=== PATIENT | male | born 1970 | race Caucasian/White ===

== ENCOUNTER 2018-02-01 10:02 | Inpatient (IN) | payer OTHER, MEDICARE ==
[~2018-02-01] VITALS: Ht 172.7 cm; Wt 75.8 kg
[~2018-02-01 10:02] MED LIST: BUPROPION XL300 M1 PO; PANTOPRAZOLE SO40 M1 PO; PERCOCET 5-3251 EACH PO; QUETIAPINE FUM300 M1 PO; TYLENOL #31 TAB PO; ZOFRAN ODT4 M1 SL; ZOFRAN4 M1 PO
--- NOTE | 2018-02-01 11:48 | ED GI/GU/ABDOMINAL COMPLAINT ---
History of Present Illness General Chief Complaint: Abdominal Pain/Flank Pain Stated Complaint: ABD PAIN Source: patient, old records Exam Limitations: no limitations Allergies Coded Allergies: hydromorphone (HIVES 03/30/17) prochlorperazine (From COMPAZINE) (SHAKING 03/30/17) Reconcile Medications Bupropion HCl (Bupropion XL) 300 MG TAB.ER.24H 1 TAB PO QAM MENTAL HEALTH ( Reported) Ondansetron (Zofran Odt) 4 MG TAB.RAPDIS 1 TAB SL TID PRN nausea Oxycodone HCl/Acetaminophen (Percocet 5-325 MG Tablet) 5 MG-325 MG TABLET 1 TAB PO BID pain Pantoprazole Sodium 40 MG TABLET.DR 1 TAB PO DAILY ACID REFLUX (Reported) Quetiapine Fumarate 300 MG TABLET 1 TAB PO QPM SLEEP (Reported) Triage Note: PT STATES THAT HE HAS A HISTORY OF PANCREATITIS AND THAT SINCE THURSDAY HE HAS BEEN HAVING SHARP ABD PAIN WITH N/V. DENIES URINARY SYMPTOMS Triage Nurses Notes Reviewed? yes Onset: Afternoon Duration: day(s):, constant, getting worse Quality/Severity: sharpness Severity Numbers: 9 Location: epigastric Radiation: back Activities at Onset: rest Prior Abdominal Problems: similar symptoms HPI: This is a 47 y/o male with PMHx of pancreatitis and bipolar disorder c/o stomach pain x 5 days. Pain is getting progressively worse and radiates to his back. Pt describes his pain as sharp, constant and rates it as 9/10. Pt took Tylenol w/o significant relief. Pt complains that food intake exacerbates the pain, hence, he has not been eating for the last 3-4 days. Pt had similar symptoms before and was diagnosed with pancreatitis. Pt denies alcohol use. Pt has Hx of smoking for the past 20 years. Pt is positive for N/V. Pt has vomites twice today and 4 times yesterday. Pt denies fever, chills, D/C, hematemesis, CP, SOB. 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 He reports that nothing came about that and he has not heard anything about it since. He followed up with his GI doctor. The history is unclear as to exactly what the diagnosis was. PSHx: cholecystectomy (García Mclean) Vital Signs & Intake/Output Vital Signs & Intake/Output Vital Signs Date Time Temp Pulse Resp B/P B/P Pulse O2 O2 Flow FiO2 Mean Ox Delivery Rate 02/01 1451 98.2 86 18 143/81 99 Room Air 02/01 1336 98.1 91 16 136/74 99 Room Air 02/01 1139 98.6 90 18 135/73 99 Room Air 02/01 1009 98.5 108 18 149/83 98 Room Air (Freedom Shea DO) Past History Travel History Traveled to [place] past 21 day No Medical History Any Pertinent Medical History? 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 No (García Mclean) Review of Systems Review of Systems Constitutional: Reports: no symptoms. EENTM: Reports: no symptoms. Respiratory: Reports: no symptoms. Cardiovascular: Reports: no symptoms. GI: Reports: see HPI. Genitourinary: Reports: no symptoms. Musculoskeletal: Reports: see HPI. Skin: Reports: no symptoms. Neurological/Psychological: Reports: no symptoms. Hematologic/Endocrine: Reports: bruising. Immunologic/Allergic: Reports: no symptoms. All Other Systems: Reviewed and Negative (García Mclean) Physical Exam Physical Exam General Appearance: well developed/nourished, alert, awake, mild distress Head: atraumatic Eyes: Bilateral: normal appearance. Ears, Nose, Throat, Mouth: hearing grossly normal, moist mucous membrane Neck: normal inspection Respiratory: normal breath sounds, no respiratory distress Cardiovascular: regular rate/rhythm Gastrointestinal: soft, tenderness (Epigastric) Back: normal inspection Extremities: normal range of motion Neurologic/Psych: awake, alert, oriented x 3 Skin: intact, normal color Core Measures ACS in differential dx? No Sepsis Present: No Sepsis Focused Exam Completed? No (García Mclean) Progress Differential Diagnosis: AMI, appendicitis, bowel obstruction, gastritis, pancreatitis, peptic ulcer, PUD/GERD Plan of Care: Orders Procedure Date/time Status Nothing by Mouth 02/01 D Active Patient Data 02/01 1547 Active ED Holding Orders 02/01 1542 Active Admit to inpatient 02/01 1542 Active Code Status 02/01 1542 Active Add-on Test (ER Only) 02/01 1453 Active Intake & Output 02/01 1358 Active ETHANOL 02/01 1352 Complete EKG 02/01 1148 Active URINALYSIS 02/01 1121 Complete TROPONIN LEVEL 02/01 1121 Complete LIPASE 02/01 1121 Complete LACTIC ACID 02/01 1121 Complete COMPREHENSIVE METABOLIC PANEL 02/01 1121 Complete CBC WITHOUT DIFFERENTIAL 02/01 1121 Complete AMYLASE 02/01 1121 Complete Current Medications Sig/Chilo Start time Last Medication Dose Stop Time Status Admin Lactated Ringer's 1,000 ML ONCE ONE 02/01 1500 AC 02/01 (Lactated Ringers) 02/01 2139 1511 Laboratory Tests 02/01/18 1421: Lactic Acid Cancelled 02/01/18 1415: Urine Color YEL, Urine Clarity CLEAR, Urine pH 6.5, Ur Specific [place] 1.010, Urine Protein NEG, Urine Ketones NEG, Urine Nitrite NEG, Urine Bilirubin NEG, Urine Urobilinogen 0.2, Ur Leukocyte Esterase NEG, Ur Microscopic EXAM NOT REQUIRED, Urine Hemoglobin NEG, Urine Glucose NEG 02/01/18 1352: Anion Gap 9, Estimated GFR > 60, BUN/Creatinine Ratio 11.1, Glucose 100 H, Lactic Acid 0.5 L, Calcium 8.5, Total Bilirubin 0.4, AST 12 L, ALT 22, Alkaline Phosphatase 111, Troponin I < 0.01, Total Protein 5.2 L, Albumin 3.2 L, Globulin 2.0, Albumin/Globulin Ratio 1.6, Amylase 79, Lipase 1095 H, RBC 3.78 L, MCV 88.5, MCH 29.6, MCHC 33.4, RDW 16.4 H, MPV 7.3 L, Gran % 56.3, Lymphocytes % 27.6, Monocytes % 7.7, Eosinophils % 7.4 H, Basophils % 1.0, Absolute Granulocytes 3.5, Absolute Lymphocytes 1.7, Absolute Monocytes 0.5, Absolute Eosinophils 0.5, Absolute Basophils 0.1, Serum Alcohol < 10.0 Microbiology 02/01 1354 M[facility] O.R.: Miscellaneous Culture - CAN Cancelled: Cancelled via OE: COMPLETED BY FOOT 02/01 1354 [facility] [place] O.R.: Gram Stain - CAN Cancelled: Cancelled via OE: COMPLETED BY FOOT Diagnostic Imaging: Viewed by Me: CT Scan. Discussed w/RAD: CT Scan. Radiology Impression: PATIENT: NESSA LEE PRESENT AGE: 47 PATIENT ACCOUNT NO: [id number] : 68 LOCATION: [facility] ORDERING PHYSICIAN: García SALAZAR SERVICE DATE: 02/01/18 EXAM TYPE: CAT - CT ABD & PELVIS W/O IV CONTRAS EXAMINATION: CT ABDOMEN AND PELVIS WITHOUT CONTRAST CLINICAL INFORMATION: Epigastric pain. COMPARISON: 03/30/2017. TECHNIQUE: Contiguous axial thin section helical images of the abdomen and pelvis were performed without oral or IV contrast. The data set was reformatted in the coronal and sagittal planes and reviewed on an independent workstation. DLP: 345 mGy-cm. FINDINGS: The visualized lung bases are clear. The visualized portions of the heart are unremarkable. The liver is of normal size and attenuation without focal lesions nor intrahepatic biliary ductal dilation. The patient is status post cholecystectomy. Surgical clips are identified. The spleen, pancreas, adrenal glands are unremarkable. Both kidneys are of normal size and attenuation without hydronephrosis. There is a 4 mm nonobstructive calculus within the interpole region of the right kidney. There is a stable 11 mm low-attenuation lesion within the upper pole of left kidney, likely account representative of a cyst. There is no abdominal free fluid. There is neither mesenteric nor retroperitoneal lymphadenopathy. Normal unopacified loops of small and large bowel are identified. There is no pelvic free fluid. The urinary bladder is unremarkable. There is neither pelvic nor inguinal lymphadenopathy. Bone windows: Neither sclerotic nor lytic bone lesions are identified. There is stable height loss and mild anterior wedging to the T11 vertebral body. There is new mild anterior wedging to the inferior endplate of L1 with mild anterior height loss. IMPRESSION: New compression fracture to the L1 vertebral body with mild height loss.. No evidence for acute abdominal or pelvic inflammatory or infectious processes. No abdominal or pelvic lymphadenopathy. 4 mm nonobstructive right renal calculus. Status post cholecystectomy. DICTATED BY: Lopez Gonsalez MD DATE/TIME DICTATED:02/01/181301 TRANSLATOR/INTERPRETER:PABLITO DATE/TIME TRANSCRIBED:06/04/18 / 1302 CONFIDENTIAL, DO NOT COPY WITHOUT APPROPRIATE AUTHORIZATION. <Electronically signed in Other Vendor System> SIGNED BY: Lopez Gonsalez MD 02/01/18 1313 Initial ED EKG: normal sinus rhythm, rate (91), nonspecific ST T wave chg (García Mclean) Departure Departure Disposition: STILL A PATIENT Condition: Stable Clinical Impression Primary Impression: Acute pancreatitis Referrals: Patient Has No Primary Care Dr (PCP/Family) Departure Forms: Customer Survey General Discharge Information Admission Note Spoke With: Asaf Rodrigez MD Documentation of Exam: Documentation of any treatments & extenuating circumstances including Concerns Regarding Discharge (functional status, medication knowledge or non-compliance, living conditions, etc.) that warrant an admission rather than observation: Patient will require IV fluids. IV pain control. GI consultation. Repeat labs. Medically not safe for discharge. Patient requiring multiple doses of IV narcotics. (García Mclean) PA/HEALTH COMMISSIONER Co-Sign Statement Statement: ED Attending supervision documentation- [] I saw and evaluated the patient. I have also reviewed all the pertinent lab results and diagnostic results. I agree with the findings and the plan of care as documented in the PA's/HEALTH COMMISSIONER's documentation. [X] I have reviewed the ED Record and agree with the PA's/HEALTH COMMISSIONER's documentation. [] Additions or exceptions (if any) to the PAs/HEALTH COMMISSIONER's note and plan are summarized below: [] (Freedom Shea DO) Critical Care Note Critical Care Note Critical Care Time: 30-74 min (35) (García Mclean)
--- NOTE | 2018-02-01 13:13 | CT SCAN REPORT ---
EXAMINATION: CT ABDOMEN AND PELVIS WITHOUT CONTRAST CLINICAL INFORMATION: Epigastric pain. COMPARISON: 03/30/2017. TECHNIQUE: Contiguous axial thin section helical images of the abdomen and pelvis were performed without oral or IV contrast. The data set was reformatted in the coronal and sagittal planes and reviewed on an independent workstation. DLP: 345 mGy-cm. FINDINGS: The visualized lung bases are clear. The visualized portions of the heart are unremarkable. The liver is of normal size and attenuation without focal lesions nor intrahepatic biliary ductal dilation. The patient is status post cholecystectomy. Surgical clips are identified. The spleen, pancreas, adrenal glands are unremarkable. Both kidneys are of normal size and attenuation without hydronephrosis. There is a 4 mm nonobstructive calculus within the interpole region of the right kidney. There is a stable 11 mm low-attenuation lesion within the upper pole of left kidney, likely account executive sales representative of a cyst. There is no abdominal free fluid. There is neither mesenteric nor retroperitoneal lymphadenopathy. Normal unopacified loops of small and large bowel are identified. There is no pelvic free fluid. The urinary bladder is unremarkable. There is neither pelvic nor inguinal lymphadenopathy. Bone windows: Neither sclerotic nor lytic bone lesions are identified. There is stable height loss and mild anterior wedging to the T11 vertebral body. There is new mild anterior wedging to the inferior endplate of L1 with mild anterior height loss. IMPRESSION: New compression fracture to the L1 vertebral body with mild height loss.. No evidence for acute abdominal or pelvic inflammatory or infectious processes. No abdominal or pelvic lymphadenopathy. 4 mm nonobstructive right renal calculus. Status post cholecystectomy.
[2018-02-01 14:01] LABS: ABSOLUTE BASOPHIL COUNT 0.1 /CUMM (0.0-0.2); ABSOLUTE EOSINOPHIL COUNT 0.5 /CUMM (0.0-0.7); ABSOLUTE GRANULOCYTE CT 3.5 /CUMM (1.4-6.5); ABSOLUTE LYMPH COUNT 1.7 /CUMM (1.2-3.4); ABSOLUTE MONOCYTE COUNT 0.5 /CUMM (0.10-0.60); EOSINOPHIL % 7.4 % (0-5); GRANULOCYTE % 56.3 % (42.2-75.2); HEMATOCRIT 33.4 % (42-52); MEAN CORPUSCULAR HGB 29.6 PG (27.0-31.0); MEAN CORPUSCULAR HGB CONC 33.4 G/DL (33.0-37.0); MEAN CORPUSCULAR VOLUME 88.5 FL (80.0-94.0); MEAN PLATELET VOLUME 7.3 FL (7.4-10.4); PLATELET COUNT 360 /CUMM (130-400); RBC DISTRIBUTION WIDTH 16.4 % (11.5-14.5); RED BLOOD CELL CT 3.78 /CUMM (4.70-6.10); WHITE BLOOD CELL COUNT 6.2 /CUMM (4.8-10.8)
--- NOTE | 2018-02-01 17:01 | History & Physical ---
Claribel Jeffrey MD 02/01/18 1700: General Information and HPI MD Statement: I have seen and personally examined NESSA LEE and documented this H&P. The patient is a 47 year old M who presented with a patient stated chief complaint of abdominal pain and nausea vomiting. Source of Information: patient Exam Limitations: no limitations History of Present Illness: This is a 47 year old male with a PMH significant for pancreatitis and bipolar disease that comes to see us for abdominal pain and nausea vomiting. The pain began 5 days ago and has been worsening. States that at worse it is a 9/10 pain scale, radiates to the back. Had a similar pain during a bout of pancreatitis 8 months ago, was hospitalized for that incident at [facility]. The patient tried Tylenol which he notes did not help. He says food makes the pain worse and as such, has not eaten in 3-4 days. The patient says the pain started 5 days ago while he was watching TV. It was followed by the nausea and vomiting. Last episode of vomiting was earlier today. He also notes a small bout of diarrhea, no blood noted in any of his stools. Patient denies any recent new foods, any alcohol intake (patient hasnt drank alcohol in 20 years), any travel. Patient denies any chest pain, shortness of breath. He sees Dr. Farrell as his scallop cutter. Apparently the reason for his past bouts of pancreatitis is due to a "deformed pancreas". Patient denies any problems with blood lipids, any family history of lipid problems, no history of taking Ca2+ supplements. His last colonoscopy was 2 years ago and was clear. Patient has bipolar disease and is on wellbutrin 300mg and Seroquel 300mg daily. He has taken the Seroquel for the past 8 years. Patient smokes 2-3 cigarettes a day since the age of 16. He denies any drugs. 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 EENTM: Reports: no symptoms. Cardiovascular: Reports: no symptoms. Respiratory: Reports: no symptoms. GI: Reports: abdominal pain, nausea, vomiting. Musculoskeletal: Reports: no symptoms. Skin: Reports: no symptoms. Neurological/Psychological: Reports: no symptoms. Exam & Diagnostic Data Last 24 Hrs of Vital Signs/I&O Vital Signs Date Time Temp Pulse Resp B/P B/P Pulse O2 O2 Flow FiO2 Mean Ox Delivery Rate 02/01 2228 98.3 75 20 128/70 96 06/04 1830 98.7 87 20 164/93 96 06/04 1750 98.6 84 16 154/90 98 Room Air / 1746 98.7 84 16 149/75 95 Room Air / 1451 98.2 86 18 143/81 99 Room Air / 1336 98.1 91 16 136/74 99 Room Air / 1139 98.6 90 18 135/73 99 Room Air / 1009 98.5 108 18 149/83 98 Room Air Intake & Output 02/02 0800 06/05 0000 /04 1600 Intake Total 600 1000 Output Total 250 400 Balance 350 600 Intake, IV 400 1000 Intake, Oral 200 Output, Urine 250 400 Patient 155 lb 155 lb Weight Weight Reported by Patient Measurement Method Physical Exam General Appearance Alert, Oriented X3, Cooperative, Mild Distress Skin No Rashes, No Breakdown, abdominal right sided bruising noted Skin Temp/Moisture Exam: Warm/Dry Sepsis Skin Exam (color): Normal for Ethnicity Cardiovascular Regular Rate, Normal S1, Normal S2, No Murmurs Lungs Clear to Auscultation Abdomen Normal Bowel Sounds, unable to assess due to pain on palpation. Neurological Normal Speech Extremities No Clubbing, No Cyanosis, No Edema Last 24 Hrs of Labs/Elie: Laboratory Tests 02/01/18 1421: Lactic Acid Cancelled 02/01/18 1415: Urine Color YEL, Urine Clarity CLEAR, Urine pH 6.5, Ur Specific [place] 1.010, Urine Protein NEG, Urine Ketones NEG, Urine Nitrite NEG, Urine Bilirubin NEG, Urine Urobilinogen 0.2, Ur Leukocyte Esterase NEG, Ur Microscopic EXAM NOT REQUIRED, Urine Hemoglobin NEG, Urine Glucose NEG 02/01/18 1352: Anion Gap 9, Estimated GFR > 60, BUN/Creatinine Ratio 11.1, Glucose 100 H, Lactic Acid 0.5 L, Calcium 8.5, Total Bilirubin 0.4, AST 12 L, ALT 22, Alkaline Phosphatase 111, Troponin I < 0.01, Total Protein 5.2 L, Albumin 3.2 L, Globulin 2.0, Albumin/Globulin Ratio 1.6, Amylase 79, Lipase 1095 H, 25-OH Vitamin D Total 14.6 L, TSH 2.590, RBC 3.78 L, MCV 88.5, MCH 29.6, MCHC 33.4, RDW 16.4 H, MPV 7.3 L, Gran % 56.3, Lymphocytes % 27.6, Monocytes % 7.7, Eosinophils % 7.4 H, Basophils % 1.0, Absolute Granulocytes 3.5, Absolute Lymphocytes 1.7, Absolute Monocytes 0.5, Absolute Eosinophils 0.5, Absolute Basophils 0.1, Serum Alcohol < 10.0 Microbiology 02/01 1354 MISC O.R.: Miscellaneous Culture - CAN Cancelled: Cancelled via OE: COMPLETED BY FOOT 02/01 1354 MISC O.R.: Gram Stain - CAN Cancelled: Cancelled via OE: COMPLETED BY FOOT Assessment/Plan Assessment: This is a 47 year old male with a PMH significant for pancreatitis and bipolar disease that comes to see us for abdominal pain and nausea vomiting. In the ED vitals were found to be normal except for some tachycardia to 108. EKG showed rate 91 with QTC 448 and some evidence of LVH. Lipase 1095, LA .5, WBC 6.2, Hb 11.2, alcohol negative, CT abdomen pelvis strangely showed no evidence of pancreatitis but a new compression fracture to L1, 4mm right renal calculus. In the ED patient recieved fluids including normal saline, and then lactated ringers. He received 2 doses of morphine. He also receive antiemetics. Of note on exam, the resident auscultated mild wheezing at lung bases. Kidneys did show eidence of mass on CT. Patient has a new compression fracture. These together could possibly suggest malignancy. Plan -Start patient on clear liquids and advance as tolerated -continue LR -lipid panel -continue psych meds for now, reevaluate tomorrow -zofran prn -CXR for potential mass? -get GI records from Dr. Farrell. MAGALY ALPs with pharm for DVT prophylaxis clear liquids As Ranked By This Provider Problem List: 1. Acute pancreatitis Core Measures/Misc (05/17) Acute Coronary Syndrome ACS Diagnosis: No Congestive Heart Failure Congestive Heart Failure Diagnosis No Cerebrovascular Accident CVA/TIA Diagnosis: No VTE (View Protocol) VTE Risk Factors Acute Medical Illness No Mechanical VTE Prophylaxis d/t N/A MechProphylax Ordered No VTE Pharm Prophylaxis d/t NA PharmProphylax ordered Sepsis (View protocol) Sepsis Present: No If YES complete Sepsis Event Note If YES complete Sepsis Event Note Asaf Rodrigez 02/01/18 1701: General Information and HPI Allergies/Medications Allergies: Coded Allergies: prochlorperazine (From COMPAZINE) (SHAKING 03/30/17) Home Med list Bupropion HCl (Bupropion XL) 300 MG TAB.ER.24H 1 TAB PO QAM MENTAL HEALTH ( Reported) Ondansetron (Zofran Odt) 4 MG TAB.RAPDIS 1 TAB SL TID PRN nausea Pantoprazole Sodium 40 MG TABLET.DR 1 TAB PO DAILY ACID REFLUX (Reported) Quetiapine Fumarate 300 MG TABLET 1 TAB PO QPM SLEEP (Reported) Core Measures/Misc (05/17) Sepsis (View protocol) If YES complete Sepsis Event Note If YES complete Sepsis Event Note Attending MD Review Statement Attending Statement Attending MD Statement: examined this patient, discuss w/resident/PA/POMPOM MAKER, agreed w/resident/PA/POMPOM MAKER, reviewed EMR data (avail) Attending Assessment/Plan: 47-year-old male with past medical history of pancreatitis with last episode 8 months ago, history of alcohol abuse and has been sober for 20 years, nicotine dependence who currently smokes about 2-3 cigarettes a day and was smoking about 1 pack a day last year presented to the ER with chief complaint of epigastric pain which started on and was slowly getting worse. Patient has had few episodes of vomiting on Thursday and Thursday and threw up twice today before he came to the ER. CT abdomen done in the emergency room did not show any pancreatitis but his lipase was elevated to 1095. Acute pancreatitis-we will start him on IV fluids with Ringer lactate and continue to monitor him closely and will put him on pain medications. His current pain level is 6 out of 10 after getting morphine. When he got to the emergency room his pain level was 9 out of 10. Given his recurrent episodes of pancreatitis patient was encouraged to quit smoking. Patient says he gets about 2 episodes of pancreatitis every year for the last few years since 2007. Patient sees Dr. Farrell from GI as an outpatient. Discussed with patient the care plan. Juvencio Diaz 02/01/18 3836: Core Measures/Misc (05/17) Sepsis (View protocol) If YES complete Sepsis Event Note If YES complete Sepsis Event Note Resident Review Statement Other Findings: Mr. Ennis is a 47 year old male w a PMH of pancreatitis, and bipolar disorder (last manic or depressive episode 20 years ago), previous alcohol abuse (quit 20y ago), cholelithiasis s/p cholecystectomy in 2008. He presents to the ER with complaints of abdominal pain. He states the pain started on , 3 out of 10 and has progressed to 10 out of 10 today. He states the pain is sharp in quality, epigastric in location radiating to the back. The pain is associated with nausea and vomiting which started on Thursday. The pain is not relieved with anything and worse with food and movement. He denies any diarrhea, constipation, fever, chills. He notes he has had multiple episodes of pancreatitis in the past, most recently 8 months ago, treated at [facility]. He gets around to episodes of pancreatitis yearly. He follows up with Dr. Farrell from [place] [facility]. He also follows up with Dr. Sexton, his psychiatrist. His home medications include Seroquel 300 mg daily at bedtime and Wellbutrin 300 mg in the morning. His social history, he is a current smoker 2-3 cigarettes daily, down from 1 pack per day since 16 years old. He denies any alcohol use. He denies any other illicit drug use. In the emergency department, his vitals were temperature 98.5, pulse rate 108, respiratory rate 18, blood pressure 149/83 saturating 98% on room air. Physical exam as dictated above with note of significant abdominal tenderness in the upper abdomen, worse in the epigastric region, with guarding., Additionally, the patient does have some bruising noted in the left abdominal lumbar region. No Cullens, Alford's or Mitchell sign appreciated. Auscultation of the lung reveals wheezing in the right posterior middle lung field. Labs as dictated above with note of elevated lipase 1095. ALT/AST unremarkable, alkaline phosphatase unremarkable. Electrolytes unremarkable with calcium 8.5. Urinalysis and toxicology screen unremarkable. Abdominopelvic CT scan as dictated above with 4 mm nonobstructive calculus in the right kidney, 11 mm low-attenuation lesion on the left upper kidney, L1 new compression fracture. Problem list assessment and plan Pancreatitis * The diagnosis of acute pancreatitis is defined by the presence of two of the following: acute onset of persistent, severe, epigastric pain often radiating to the back, elevation in serum lipase or amylase to three times or greater than the upper limit of normal, or characteristic findings of acute pancreatitis on imaging (contrast-enhanced computed tomography, magnetic resonance imaging, or transabdominal ultrasonography). * Etiology is not exactly known - pt denied drinking and is s/p betty. No elevated LFTs/alk phos. Query to seroquel as a cause. We will evaluate lipid panel in the am, and if unremarkable, please consider this as a trigger as pancreatitis is a lesser known adverse effect of seroquel. * Ransons = 0. * BISAP = 0 * We will admit to for fluid replacement and pain control * No need for ICU as the pt has stable vitals, no significant electrolyte abnormalities (sodium <110 mmol/L or >170 mmol/L, potassium <2.0 mmol/L or >7.0 mmol/L), or glucose >800 mg/dL, with a normal calcium. * Aggressive fluid resus w 5-10cc/kg/h (5*70kg) = 350 cc/h x 1 bag, then 200cc/h x3 bags, as fluids in the initial stages (within the first 12 to 24 hours) of acute pancreatitis, has been associated with a reduction in morbidity and mortality New compression fracture * Patient's calcium is unremarkable * Questionable osteopenia as he is a smoker however is a 47-year-old male was not expected. * With a new fracture, renal mass and focal wheezing appreciated on auscultation of the chest, we will evaluate with an x-ray of the chest as he is a smoker and may have an underlying malignancy. * We will add vitamin D as well as thyroid investigations FC Clear liquid diet as tolerated ALPS for DVT ppx Pain path as ordered
--- NOTE | 2018-02-01 17:08 | Admission Certification ---
Admission Certification Certification Statement - As attending physician, I certify that at the time of - admission, based on clinical presentation, severity of - symptoms, need for further diagnostic testing and - therapeutic interventions, and risk of adverse outcomes - without in-hospital treatment, in my clinical assessment, - this patient requires an acute hospital stay for a minimum - of two nights or longer. I have also considered psychsocial - factors such as support system, advanced age, financial - issues, cognitive issues, and failed out-patient treatments, - past re-admission history, safety of patient, and lack of - compliance as applicable. Specific rationale supporting this admission is: acute pancreatitis.
[2018-02-01 17:50] VITALS: BP 154/90
[2018-02-01 18:30] VITALS: BP 164/93
--- NOTE | 2018-02-01 21:58 | RADIOLOGY REPORT ---
EXAMINATION: XR CHEST CLINICAL INFORMATION: evaluate for mass. hx of smoking + renal mass + vertebral fx COMPARISON: None TECHNIQUE: 2 views of the chest were obtained. FINDINGS: Lungs are clear. No pulmonary vascular congestion. Lungs are clear. No infiltrate or pleural effusion. The cardiac and mediastinal contour are normal. There is no pneumothorax. There is old healed fractures of the right lateral seventh and eighth ribs. Old healed fracture of the left lateral fourth rib. There is slight anterior wedge compression deformities of 2 adjacent midthoracic vertebrae with a mild kyphosis of the dorsal spine. These are indeterminate for age. No fracture line seen. There is degenerative spondylosis of lower cervical spine with disc height narrowing and endplate spurring of the vertebrae. There are surgical clips in the upper abdomen. IMPRESSION: 1. Slight anterior wedge compression deformity of 2 adjacent mid thoracic vertebrae. There is no fracture line. These are indeterminate for age. 2. Old healed fractures of right lateral seventh and eighth ribs in the left fourth rib. 3. No acute change of chest.
[2018-02-01 22:28] VITALS: BP 128/70
[2018-02-02 06:43] VITALS: BP 115/61
--- NOTE | 2018-02-02 08:33 | PN- Housestaff ---
Irene FARNSWORTH,Jewel 02/02/18 0833: Subjective Follow-up For: pancreatitis Subjective: patient complaints of severe 9/10 epigastric abdominal pain Review of Systems Constitutional: Reports: see HPI. Objective Last 24 Hrs of Vital Signs/I&O Vital Signs Date Time Temp Pulse Resp B/P B/P Pulse O2 O2 Flow FiO2 Mean Ox Delivery Rate 02/02 1343 97.7 85 20 138/78 96 Room Air / 0643 98.8 65 20 115/61 97 Room Air / 2228 98.3 75 20 128/70 96 06/04 1830 98.7 87 20 164/93 96 06/ 1750 98.6 84 16 154/90 98 Room Air / 1746 98.7 84 16 149/75 95 Room Air / 1451 98.2 86 18 143/81 99 Room Air Intake & Output 02/02 1600 02/02 0800 06 0000 Intake Total 900 600 Output Total 300 600 250 Balance -300 300 350 Intake, IV 800 400 Intake, Oral 100 200 Output, Urine 300 600 250 Patient 70.307 kg Weight Weight Reported by Patient Measurement Method Physical Exam General Appearance: Alert, Oriented X3, Cooperative, Mild Distress, abdominal pain Cardiovascular: Regular Rate, Normal S1, Normal S2, No Murmurs Lungs: Clear to Auscultation, Normal Air Movement Abdomen: Normal Bowel Sounds, Soft, severe epigastric tenderness, ecchymosis LLQ Extremities: No Clubbing, No Cyanosis, No Edema, Normal Pulses Current Medications: Current Medications Sig/Chilo Start time Last Medication Dose Route Stop Time Status Admin Acetaminophen 325 MG Q8P PRN 02/01 1745 AC PO Acetaminophen 1,000 MG Q6P PRN 02/01 1745 DC 02/01 IV 1949 Bupropion HCl 300 MG QAM 02/02 0900 AC 02/02 PO 0815 Hydromorphone HCl 1 MG Q6P PRN 02/02 1030 AC 02/02 IV 1048 Hydromorphone HCl 1 MG Q3P PRN 02/02 1015 DC IV Lactated Ringer's 1,000 ML .Q10H 02/01 1745 AC 02/02 IV 02/02 2113 1049 Lactated Ringer's 1,000 ML ONCE ONE 02/01 1500 DC 02/01 IV 02/01 2139 1511 Morphine Sulfate 2 MG Q4P PRN 02/02 1045 AC 02/02 IV 1236 Morphine Sulfate 2 MG ONCE ONE 02/02 0845 CAN IV 02/02 0846 Morphine Sulfate 2 MG ONCE ONE 02/02 0830 DC 02/02 IV 02/02 0831 0846 Morphine Sulfate 2 MG Q4P PRN 02/01 1745 DC 02/02 IV 0610 Morphine Sulfate 0 .STK-MED ONE 02/01 1508 DC .ROUTE Morphine Sulfate 6 MG ONCE ONE 02/01 1500 DC 02/01 IV 02/01 1501 1511 Omeprazole 40 MG DAILY AC 02/02 0700 AC 02/02 PO 0610 Ondansetron HCl 4 MG TID PRN 02/01 1930 AC 02/02 PO 1236 Quetiapine Fumarate 300 MG QPM 02/01 2100 AC 02/01 PO 2142 Last 24 Hrs of Lab/Elie Results Last 24 Hrs of Labs/Mics: Laboratory Tests 02/02/18 0835: RBC 4.06 L, MCV 90.0, MCH 30.0, MCHC 33.3, RDW 16.5 H, Gran % 42.7, Lymphocytes % 41.1, Monocytes % 7.5, Eosinophils % 7.7 H, Basophils % 1.0, Absolute Granulocytes 3.1, Absolute Lymphocytes 3.0, Absolute Monocytes 0.5, Absolute Eosinophils 0.6, Absolute Basophils 0.1 02/02/18 0745: Anion Gap 9, Estimated GFR > 60, BUN/Creatinine Ratio 8.9, Triglycerides 106, Cholesterol 108, LDL Cholesterol, Calc 53 L, HDL Cholesterol 34 L, Cholesterol /HDL Ratio 3 02/01/18 1421: Lactic Acid Cancelled 02/01/18 1415: Urine Color YEL, Urine Clarity CLEAR, Urine pH 6.5, Ur Specific [place] 1.010, Urine Protein NEG, Urine Ketones NEG, Urine Nitrite NEG, Urine Bilirubin NEG, Urine Urobilinogen 0.2, Ur Leukocyte Esterase NEG, Ur Microscopic EXAM NOT REQUIRED, Urine Hemoglobin NEG, Urine Glucose NEG 02/01/18 1352: Anion Gap 9, Estimated GFR > 60, BUN/Creatinine Ratio 11.1, Glucose 100 H, Lactic Acid 0.5 L, Calcium 8.5, Total Bilirubin 0.4, AST 12 L, ALT 22, Alkaline Phosphatase 111, Troponin I < 0.01, Total Protein 5.2 L, Albumin 3.2 L, Globulin 2.0, Albumin/Globulin Ratio 1.6, Amylase 79, Lipase 1095 H, 25-OH Vitamin D Total 14.6 L, TSH 2.590, RBC 3.78 L, MCV 88.5, MCH 29.6, MCHC 33.4, RDW 16.4 H, MPV 7.3 L, Gran % 56.3, Lymphocytes % 27.6, Monocytes % 7.7, Eosinophils % 7.4 H, Basophils % 1.0, Absolute Granulocytes 3.5, Absolute Lymphocytes 1.7, Absolute Monocytes 0.5, Absolute Eosinophils 0.5, Absolute Basophils 0.1, Serum Alcohol < 10.0 Microbiology 02/01 1354 MISC O.R.: Miscellaneous Culture - CAN Cancelled: Cancelled via OE: COMPLETED BY FOOT 02/01 1354 MISC O.R.: Gram Stain - CAN Cancelled: Cancelled via OE: COMPLETED BY FOOT Assessment/Plan Assessment: 47 year old male w a PMH of pancreatitis and well controlled bipolar disorder, previous alcohol abuse (quit 20y ago), cholelithiasis s/p cholecystectomy in 2008, and pancreatitis (etiology reportedly anatomic-pancreatic divisum?) presented with severe epigastric abdominal pain with associated nausea and aggravated by oral intake. Pancreatitis: Former etoh abuse, current smoker Multiple episodes of pancreatitis in the past, most recently 8 months ago, treated at [facility] Outpatient GI Dr. Guzman from [place] [facility]. Tachycardic on presentation with severe epigastric pain, abdominal distention Elevated lipase 1095. ALT/AST unremarkable, alkaline phosphatase normal, calcium 8.[address] scan 4 mm nonobstructive calculus in the right kidney, 11 mm low- attenuation lesion on the left upper kidney, L1 new compression fracture. The liver is of normal size and attenuation without focal lesions nor intrahepatic biliary ductal dilation. The patient is status post cholecystectomy. Surgical clips are identified. The spleen, pancreas, adrenal glands are unremarkable. Gastroenterology consultation Continue hydration with lactated ringers Dilaudid for analgesia Zofran for nausea Triglycerides unremarkable, possibly secondary to seroquel Will obtain records from outpatient creative consultant Bipolar disorder: Continue seroquel and wellbutrin Oupatient psychiatrist- Dr. Sexton Lumbar compression fracture Chest x-ray shows compression deformities of thoracic spine CT shows L1 compression fracture Thyroid normal, vitamin D low, will supplement Outpatient DEXA scan Clear liquid diet DVT ppx-lovenox Full code Problem List: 1. Pancreatitis Pain Ratin Pain Location: epigastric Pain Goal: Pain 4 or less Pain Plan: dilaudid Tomorrow[facility] Labs & Rationales: none Michael FARNSWORTH,Faiza 02/02/18 1446: Attending MD Review Statement Attending Statement Attending MD Statement: examined this patient, discuss w/resident/PA/CHILD CARE DEVELOPMENT SPECIALIST, agreed w/resident/PA/CHILD CARE DEVELOPMENT SPECIALIST, reviewed EMR data (avail), discussed with nursing, discussed with case mgmt, amended to note Attending Assessment/Plan: Patient seen and examined. Complaining of diffuse abdominal pain. He has very poor intravenous access. IV line is being placed in the right forearm. He was however complaining of significant pain so the line had to be discontinued. Denies nausea. Denies vomiting. He is averse to eating or drinking right now. On examination he is not in any respiratory distress. Heart sounds are regular with a 3/6 systolic murmur. Lungs are clear to auscultation bilaterally. Abdomen is nondistended, soft with diffuse tenderness. No rebound. No guarding. No peripheral edema. Lipase levels noted to be just over 1000. CT report shows a normal pancreas. Patient gives a history of repeated pancreatitis. Records from [facility] reviewed by me. He has had repeated ER visits to the emergency room. Patient has history of recurrent pancreatitis secondary to pancreatic divisum and chronic abdominal pain. He is status post pancreatic divisum stent placement, minor duct sphincterectomy in 2010, celiac nerve block and cholecystectomy. Despite these interventions he has had repeated emergency room visits for complaints of abdominal pain. He has had multiple CT abdomen without evidence of acute pathologies. In August he had endoscopy with biopsies. No significant pathology was noted. He was shown to have moderate antral and oxyntic reactive gastropathy. In August he had an MR enterography that showed no evidence of active inflammatory bowel disease. When asked why patient did not go to [facility] for intervention at this time around he stated that he simply did not like that hospital. Problems: 1. Recurrent abdominal pain. 2. Recurrent pancreatitis. 3. Bipolar disorder 4. Lumbar Compression fracture Plan: -Patient complained of suboptimal pain control. Continue pain management with morphine 2 mg every 4 hours as needed pain. I do not Dilaudid 1 mg IV every 6 hours as needed for breakthrough pain. - Gastroenterology consultation. -Please contact patient's primary care provider Dr. Liza Edwards in order to give the name of his creative consultant and obtain further medical information. -Begin clear liquid diet once patient was able to tolerate. -Continue IV hydration. - After further IV hydration reattempt obtaining-a more reliable intravenous access. -Continue antiemetic therapy. -Continue psychiatric regimen for his bipolar disorder. -Currently denies back pain. Obtain spine surgery consult. -DVT prophylaxis with heparin subcu.
[2018-02-02 09:06] LABS: ABSOLUTE BASOPHIL COUNT 0.1 /CUMM (0.0-0.2); ABSOLUTE EOSINOPHIL COUNT 0.6 /CUMM (0.0-0.7); ABSOLUTE GRANULOCYTE CT 3.1 /CUMM (1.4-6.5); ABSOLUTE MONOCYTE COUNT 0.5 /CUMM (0.10-0.60); EOSINOPHIL % 7.7 % (0-5); HEMATOCRIT 36.6 % (42-52); MEAN CORPUSCULAR HGB CONC 33.3 G/DL (33.0-37.0); RBC DISTRIBUTION WIDTH 16.5 % (11.5-14.5); RED BLOOD CELL CT 4.06 /CUMM (4.70-6.10)
[2018-02-02 09:20] LABS: GRANULOCYTE % 42.7 % (42.2-75.2); WHITE BLOOD CELL COUNT 7.4 /CUMM (4.8-10.8)
[2018-02-02 13:43] VITALS: BP 138/78
--- NOTE | 2018-02-02 16:08 | Cons- Gastroenterology ---
General Information and HPI Consulting Request Date of Consult: 02/02/18 Requested By: Michael FARNSWORTH,Faiza Reason for Consult: Epigastric pain Source of Information: patient, old records Allergies/Medications Allergies: Coded Allergies: hydromorphone (HIVES 03/30/17) prochlorperazine (From COMPAZINE) (SHAKING 03/30/17) Home Med List: Bupropion HCl (Bupropion XL) 300 MG TAB.ER.24H 1 TAB PO QAM MENTAL HEALTH ( Reported) Ondansetron (Zofran Odt) 4 MG TAB.RAPDIS 1 TAB SL TID PRN nausea Pantoprazole Sodium 40 MG TABLET.DR 1 TAB PO DAILY ACID REFLUX (Reported) Quetiapine Fumarate 300 MG TABLET 1 TAB PO QPM SLEEP (Reported) Current Medications: Current Medications Sig/Chilo Start time Last Medication Dose Route Stop Time Status Admin Acetaminophen 325 MG Q8P PRN / 1745 AC PO Acetaminophen 1,000 MG Q6P PRN 02/01 1745 DC 02/01 IV 1949 Bupropion HCl 300 MG QAM 02/02 0900 AC 02/02 PO 0815 Hydromorphone HCl 1 MG Q6P PRN 02/02 1030 AC 02/02 IV 1048 Hydromorphone HCl 1 MG Q3P PRN 02/02 1015 DC IV Lactated Ringer's 1,000 ML .Q10H 02/01 1745 AC / IV 06/ 2113 1049 Lactated Ringer's 1,000 ML ONCE ONE 02/01 1500 DC / IV 02/01 2139 1511 Lipase/Protease/ 3 CAP WM 02/02 1700 AC Amylase PO Morphine Sulfate 2 MG Q4P PRN 02/02 1045 AC / IV 1236 Morphine Sulfate 2 MG ONCE ONE 02/02 0845 CAN IV 02/02 0846 Morphine Sulfate 2 MG ONCE ONE 02/02 0830 DC / IV / 0831 0846 Morphine Sulfate 2 MG Q4P PRN 02/01 1745 DC / IV 0610 Omeprazole 40 MG DAILY AC 02/02 0700 AC 02/02 PO 0610 Ondansetron HCl 4 MG TID PRN 02/01 1930 AC / PO 1236 Quetiapine Fumarate 300 MG QPM 04 2100 AC 02/01 PO 2142 Past History Travel History Traveled to [place] past 21 day No Medical History Neurological: NONE EENT: NONE Cardiovascular: NONE Respiratory: NONE Gastrointestinal: pancreatitis Hepatic: NONE Renal: NONE Musculoskeletal: NONE Psychiatric: bipolar disease Endocrine: NONE Blood Disorders: NONE Cancer(s): 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 Surgical History Surgical History: cholecystectomy Psychosocial History Smoking Status: Current Everyday Smoker ETOH Use: denies use Illicit Drug Use: denies illicit drug use Exam & Diagnostic Data Vital Signs and I&O Vital Signs Date Time Temp Pulse Resp B/P B/P Pulse O2 O2 Flow FiO2 Mean Ox Delivery Rate 02/02 1343 97.7 85 20 138/78 96 Room Air 02/02 0643 98.8 65 20 115/61 97 Room Air 02/01 2228 98.3 75 20 128/70 96 02/01 1830 98.7 87 20 164/93 96 02/01 1750 98.6 84 16 154/90 98 Room Air 02/01 1746 98.7 84 16 149/75 95 Room Air Intake & Output 02/02 1600 02/02 0400 02/01 1600 02/01 0400 01/31 1600 01/31 0400 Intake Total 3215 439 2222 Output Total 1200 250 400 Balance 550 350 600 Intake, IV 8868 250 5307 Intake, Oral 250 200 Output, Urine 1200 250 400 Patient 155 lb 155 lb Weight Weight Reported by Patient Measurement Method Results Pertinent Lab Results: Laboratory Tests 02/02 02/02 02/01 0835 0745 1421 Chemistry Sodium (137 - 145 mmol/L) 140 Potassium (3.5 - 5.1 mmol/L) 4.2 Chloride (98 - 107 mmol/L) 106 Carbon Dioxide (22 - 30 mmol/L) 25 Anion Gap (5 - 16) 9 BUN (9 - 20 mg/dL) 8 L Creatinine (0.7 - 1.2 mg/dL) 0.9 Estimated GFR (>60 ml/min) > 60 BUN/Creatinine Ratio (7 - 25 %) 8.9 Lactic Acid Cancelled Triglycerides (<150 mg/dL) 106 Cholesterol (< 200 MG/DL) 108 LDL Cholesterol, Calc (65 - 129 mg/dL) 53 L HDL Cholesterol (40 - 60 mg/dL) 34 L Cholesterol/HDL Ratio (0.00 - 4.88 %) 3 Hematology WBC (4.8 - 10.8 /CUMM) 7.4 RBC (4.70 - 6.10 /CUMM) 4.06 L Hgb (14.0 - 18.0 G/DL) 12.2 L Hct (42 - 52 %) 36.6 L MCV (80.0 - 94.0 FL) 90.0 MCH (27.0 - 31.0 PG) 30.0 MCHC (33.0 - 37.0 G/DL) 33.3 RDW (11.5 - 14.5 %) 16.5 H Plt Count (130 - 400 /CUMM) Gran % (42.2 - 75.2 %) 42.7 Lymphocytes % (20.5 - 51.1 %) 41.1 Monocytes % (1.7 - 9.3 %) 7.5 Eosinophils % (0 - 5 %) 7.7 H Basophils % (0.0 - 2.0 %) 1.0 Absolute Granulocytes (1.4 - 6.5 /CUMM) 3.1 Absolute Lymphocytes (1.2 - 3.4 /CUMM) 3.0 Absolute Monocytes (0.10 - 0.60 /CUMM) 0.5 Absolute Eosinophils (0.0 - 0.7 /CUMM) 0.6 Absolute Basophils (0.0 - 0.2 /CUMM) 0.1 02/01 02/01 1415 1352 Chemistry Sodium (137 - 145 mmol/L) 139 Potassium (3.5 - 5.1 mmol/L) 3.8 Chloride (98 - 107 mmol/L) 104 Carbon Dioxide (22 - 30 mmol/L) 26 Anion Gap (5 - 16) 9 BUN (9 - 20 mg/dL) 10 Creatinine (0.7 - 1.2 mg/dL) 0.9 Estimated GFR (>60 ml/min) > 60 BUN/Creatinine Ratio (7 - 25 %) 11.1 Glucose (65 - 99 mg/dL) 100 H Lactic Acid (0.7 - 2.1 mmol/L) 0.5 L Calcium (8.4 - 10.2 mg/dL) 8.5 Total Bilirubin (0.2 - 1.3 mg/dL) 0.4 AST (17 - 59 U/L) 12 L ALT (21 - 72 U/L) 22 Alkaline Phosphatase (< 127 U/L) 111 Troponin I (<0.11 ng/ml) < 0.01 Total Protein (6.3 - 8.2 g/dL) 5.2 L Albumin (3.5 - 5.0 g/dL) 3.2 L Globulin (1.9 - 4.2 gm/dL) 2.0 Albumin/Globulin Ratio (1.1 - 2.2 %) 1.6 Amylase (30 - 110 U/L) 79 Lipase (23 - 300 U/L) 1095 H 25-OH Vitamin D Total (30 - 100 ng/ml) 14.6 L TSH (0.270 - 4.200 uIU/mL) 2.590 Hematology WBC (4.8 - 10.8 /CUMM) 6.2 RBC (4.70 - 6.10 /CUMM) 3.78 L Hgb (14.0 - 18.0 G/DL) 11.2 L Hct (42 - 52 %) 33.4 L MCV (80.0 - 94.0 FL) 88.5 MCH (27.0 - 31.0 PG) 29.6 MCHC (33.0 - 37.0 G/DL) 33.4 RDW (11.5 - 14.5 %) 16.4 H Plt Count (130 - 400 /CUMM) 360 MPV (7.4 - 10.4 FL) 7.3 L Gran % (42.2 - 75.2 %) 56.3 Lymphocytes % (20.5 - 51.1 %) 27.6 Monocytes % (1.7 - 9.3 %) 7.7 Eosinophils % (0 - 5 %) 7.4 H Basophils % (0.0 - 2.0 %) 1.0 Absolute Granulocytes (1.4 - 6.5 /CUMM) 3.5 Absolute Lymphocytes (1.2 - 3.4 /CUMM) 1.7 Absolute Monocytes (0.10 - 0.60 /CUMM) 0.5 Absolute Eosinophils (0.0 - 0.7 /CUMM) 0.5 Absolute Basophils (0.0 - 0.2 /CUMM) 0.1 Toxicology Serum Alcohol (<10 MG/DL) < 10.0 Urines Urine Color (YEL,AMB,STR) YEL Urine Clarity (CLEAR) CLEAR Urine pH (5.0 - 8.0) 6.5 Ur Specific [place] (1.001 - 1.035) 1.010 Urine Protein (NEG,<30 MG/DL) NEG Urine Ketones (NEG) NEG Urine Nitrite (NEG) NEG Urine Bilirubin (NEG) NEG Urine Urobilinogen (0.1 - 1.0 EU/dl) 0.2 Ur Leukocyte Esterase (NEG) NEG Ur Microscopic EXAM NOT REQUIRED Urine Hemoglobin (NEG) NEG Urine Glucose (N MG/DL) NEG Imaging/Other Studies: CT scan without contrast: New compression fracture to the L1 vertebral body with mild height loss.. Pancreas unremarkable. No evidence for acute abdominal or pelvic inflammatory or infectious processes. No abdominal or pelvic lymphadenopathy. 4 mm nonobstructive right renal calculus. Status post cholecystectomy. Assessment/Plan Assessment/Recommendations: Chronic pain syndrome deemed secondary to pancreatitis, with exacerbation. Mild elevation in lipase, but without imaging findings of pancreatic or peripancreatic inflammation, and with no chronic pancreatic changes such as ductal abnormality or calcification. The patient has apparently undergone several therapeutic maneuvers, including ERCP with pancreatic sphincterotomy and EUS with celiac nerve block. Despite the compression fracture of the lumbar vertebrae, the pain is predominately epigastric and more likely to be pancreatic or in the celiac ganglion distribution. Recommendations * Nothing by mouth, IV fluids * IV analgesics (Dilaudid) * Parenteral antiemetics as needed * Will discuss with [place] based gastroenterologists Consult Acknowledgment - Thank you for your consult request.
[2018-02-02 22:07] VITALS: BP 140/81
[2018-02-03 05:49] VITALS: BP 112/68
--- NOTE | 2018-02-03 07:02 | PN- Housestaff ---
Irene FARNSWORTH,Jewel 02/03/18 0702: Subjective Follow-up For: pancreatitis Subjective: patient has persistent epigastric abdominal pain /, slightly improved from yesterday had one episode of minimal bilious vomiting, still complaints of nausea, poor appetite afebrile Review of Systems Constitutional: Reports: see HPI. Objective Last 24 Hrs of Vital Signs/I&O Vital Signs Date Time Temp Pulse Resp B/P B/P Pulse O2 O2 Flow FiO2 Mean Ox Delivery Rate 02/03 0549 97.5 71 20 112/68 97 Room Air 02/02 2207 98.2 79 20 140/81 95 Room Air 02/02 1343 97.7 85 20 138/78 96 Room Air Intake & Output 02/03 1600 02/03 0800 02/03 0000 Intake Total 450 600 Output Total 1100 450 Balance -650 150 Intake, IV 450 600 Number 0 0 Bowel Movements Output, Urine 1100 450 Patient 69.853 kg Weight Physical Exam General Appearance: Alert, Oriented X3, Cooperative, No Acute Distress Cardiovascular: Regular Rate, Normal S1, Normal S2, No Murmurs Lungs: Clear to Auscultation, Normal Air Movement Abdomen: Normal Bowel Sounds, Soft, No Masses, severe epigastric tenderness Extremities: No Clubbing, No Cyanosis, No Edema, Normal Pulses Current Medications: Current Medications Sig/Chilo Start time Last Medication Dose Route Stop Time Status Admin Acetaminophen 1,000 MG ONCE ONE 02/02 2015 DC 02/02 N/A 1 UNIT IV 02/02 Acetaminophen 325 MG Q8P PRN 02/01 1745 AC PO Bupropion HCl 300 MG QAM 02/02 09 02/03 PO 0955 Cholecalciferol 50,000 IU ONCE ONE 02/03 1330 UNVr PO 02/03 1331 Dextrose/Lactated 1,000 ML Q13H 02/02 1630 AC 02/03 Ringer's IV 0547 Dextrose/Sodium 1,000 ML Q13H 02/02 1630 CAN Chloride IV Enoxaparin Sodium 40 MG DAILY 02/03 09 02/03 SC 0957 Hydromorphone HCl 1 MG Q6P PRN 02/02 1030 AC 02/03 IV 1050 Lactated Ringer's 1,000 ML .Q10H 02/01 1745 DC 02/02 IV 02/02 2113 1049 Lipase/Protease/ 3 CAP WM 02/02 1700 02/03 Amylase PO 1241 Morphine Sulfate 2 MG Q4P PRN 02/02 1045 AC 02/03 IV 0955 Non-Formulary 0 SEE ADMIN CRITERIA 02/02 1630 CAN Medication ANY Omeprazole 40 MG DAILY AC 02/02 0700 AC 02/03 PO 0540 Ondansetron HCl 4 MG TID PRN 02/01 1930 02/03 PO 0859 Patient Medication 1 ED ONE ONE 02/03 1100 [place] Teaching ED 02/03 1101 Patient Medication 1 ED ONE ONE 02/02 1645 [facility] ED 02/02 1646 Quetiapine Fumarate 300 MG QPM 02/01 2100 AC 02/01 PO 2142 Trimethobenzamide HCl 200 MG ONCE ONE 02/02 2030 [place] 02/02 IM 02/02 Assessment/Plan Assessment: 47 year old male w a PMH of pancreatitis and well controlled bipolar disorder, previous alcohol abuse (quit 20y ago), cholelithiasis s/p cholecystectomy in 2008, and pancreatitis (etiology reportedly anatomic-pancreatic divisum?) presented with severe epigastric abdominal pain with associated nausea and aggravated by oral intake. Pancreatitis: acute-recurrent Former etoh abuse, current smoker Multiple episodes of pancreatitis in the past, most recently 8 months ago, treated at [facility] Outpatient GI Dr. Guzman from [place] [facility]. Tachycardic on presentation with severe epigastric pain, abdominal distention Elevated lipase 1095. ALT/AST unremarkable, alkaline phosphatase normal, calcium 8.[address] scan 4 mm nonobstructive calculus in the right kidney, 11 mm low- attenuation lesion on the left upper kidney, L1 new compression fracture. The liver is of normal size and attenuation without focal lesions nor intrahepatic biliary ductal dilation. The patient is status post cholecystectomy. Surgical clips are identified. The spleen, pancreas, adrenal glands are unremarkable. Gastroenterology consultation NPO, Continue hydration with lactated ringers 75cc/hr Anticipate starting low fat diet with pancreatic enzyme supplementation tomorrow Dilaudid IV prn for analgesia Zofran for nausea Triglycerides unremarkable Obtained outpatient galley hand Dr. Guzman H/o pancreatic divisum, sphincterotomy and celiac plexus block Bipolar disorder: Continue seroquel and wellbutrin Oupatient psychiatrist- Dr. Sexton Lumbar compression fracture Chest x-ray shows compression deformities of thoracic spine CT shows L1 new compression fracture Thyroid normal, vitamin D low, will supplement Orthopedic spine consult with Dr. Herrera Outpatient DEXA scan NPO DVT [id number] Full code Problem List: 1. Acute pancreatitis Pain Ratin Pain Location: epigastric Pain Goal: Pain 4 or less Pain Plan: dilaudid iv prn Tomorrow's Labs & Rationales: none Michael FARNSWORTH,Kaykayjefrysigifredo 02/03/18 1215: Attending MD Review Statement Attending Statement Attending MD Statement: examined this patient, discuss w/resident/PA/ETL SOFTWARE ENGINEER, agreed w/resident/PA/ETL SOFTWARE ENGINEER, reviewed EMR data (avail), discussed with nursing, discussed with case mgmt, amended to note Attending Assessment/Plan: Patient seen and examined. Continues complain of abdominal pain but admits that the pain is improving. Reports nausea. Had some vomiting yesterday but none so far today. Remains reluctant to try oral feeding. Examination abdomen is soft with epigastric tenderness. No rebound or guarding. No complaints of back pain. We will continue intravenous fluids analgesic therapy. Continue bowel rest as recommended by the GI service. Continue to mobilize patient as tolerated. If pain continues to improve we will transition to oral analgesic therapy. Awaiting evaluation by the spine surgery service for his lumbar compression fracture.
--- NOTE | 2018-02-03 11:50 | PN- Student ---
Subjective Subjective: Patient is a 47 year old male with a PMHx of pancreatitis and bipolar disorder who presented to the ED on Thursday with worsening abdominal pain and n/v since evening. His lipase was [address] scan showed no signs of pancreatitis. He still complains of epigastric pain with radiation to the back, which has gone down to an 8/10 (from 05/10). He vomited last night but his nausea is improving, though he still doesn't feel like eating. He has had a few ice chips which make his pain worse about 10-15 min later. He was able to walk around a bit yesterday which did not exacerbate his pain. He denied any P[place], dizziness, or diarrhea. PMHx: Pancretitis- 8 mos ago treated at [place] Bipolar disorder Pancreatic divisum Sx: Cholecystectomy in 2008 Pancreatic sphincterotomy Celiac nerve block SHx: Patient lives alone and is on disability for bipolar disorder. He has a history of EtOH dependence 20 years ago, currently smokes 2-3 cigarettes per day and denies any illicit drug use. Objective Objective: Vital Signs Date Time Temp Pulse Resp B/P B/P Pulse O2 O2 Flow FiO2 Mean Ox Delivery Rate 02/03 0549 97.5 71 20 112/68 97 Room Air 02/02 2207 98.2 79 20 140/81 95 Room Air 02/02 1343 97.7 85 20 138/78 96 Room Air Physical Exam General: AOx3, cooperative, in apparent discomfort Cardiac: RRR, 2/6 systolic murmur Pulmonary: clear to auscultation Abdomen: soft, slightly distended, diffuse tenderness to palpation especially in epigastric region, LLQ ecchymoses Extremities: No clubbing or edema Intake & Output 02/03 1600 02/03 0800 02/03 0000 Intake Total 450 600 Output Total 1100 450 Balance -650 150 Intake, IV 450 600 Number 0 0 Bowel Movements Output, Urine 1100 450 Patient 154 lb Weight Current Medications Sig/Chilo Start time Last Medication Dose Route Stop Time Status Admin Acetaminophen 1,000 MG ONCE ONE 02/02 2015 DC 02/02 N/A 1 UNIT IV 02/02 Acetaminophen 325 MG Q8P PRN 02/01 1745 AC PO Bupropion HCl 300 MG QAM 02/02 0900 AC 02/03 PO 0955 Dextrose/Lactated 1,000 ML Q13H 02/02 1630 AC 02/03 Ringer's IV 0547 Dextrose/Sodium 1,000 ML Q13H 02/02 1630 CAN Chloride IV Enoxaparin Sodium 40 MG DAILY 02/03 0900 02/03 SC 0957 Hydromorphone HCl 1 MG Q6P PRN 02/02 1030 02/03 IV 1050 Lactated Ringer's 1,000 ML .Q10H 02/01 1745 DC 02/02 IV 02/02 2113 1049 Lipase/Protease/ 3 CAP WM 02/02 1700 02/03 Amylase PO 0955 Morphine Sulfate 2 MG Q4P PRN 02/02 1045 02/03 IV 0955 Non-Formulary 0 SEE ADMIN CRITERIA 02/02 1630 CAN Medication ANY Omeprazole 40 MG DAILY 02/02 0700 02/03 PO 0540 Ondansetron HCl 4 MG .STK-MED ONE 02/02 1234 DC PO 02/02 1235 Ondansetron HCl 4 MG TID PRN 02/01 1930 02/03 PO 0859 Patient Medication 1 ED ONE ONE 02/03 1100 [place] Teaching ED 02/03 1101 Patient Medication 1 ED ONE ONE 02/02 1645 [place] Teaching ED 02/02 1646 Quetiapine Fumarate 300 MG QPM 02/01 2100 02/01 PO 2142 Trimethobenzamide HCl 200 MG ONCE ONE 02/02 2030 [place] 02/02 IM 02/02 Results Results: Laboratory Tests 02/02/18 0835: RBC 4.06 L, MCV 90.0, MCH 30.0, MCHC 33.3, RDW 16.5 H, Gran % 42.7, Lymphocytes % 41.1, Monocytes % 7.5, Eosinophils % 7.7 H, Basophils % 1.0, Absolute Granulocytes 3.1, Absolute Lymphocytes 3.0, Absolute Monocytes 0.5, Absolute Eosinophils 0.6, Absolute Basophils 0.1 02/02/18 0745: Anion Gap 9, Estimated GFR > 60, BUN/Creatinine Ratio 8.9, Triglycerides 106, Cholesterol 108, LDL Cholesterol, Calc 53 L, HDL Cholesterol 34 L, Cholesterol /HDL Ratio 3 02/01/18 1421: Lactic Acid Cancelled 02/01/18 1415: Urine Color YEL, Urine Clarity CLEAR, Urine pH 6.5, Ur Specific [place] 1.010, Urine Protein NEG, Urine Ketones NEG, Urine Nitrite NEG, Urine Bilirubin NEG, Urine Urobilinogen 0.2, Ur Leukocyte Esterase NEG, Ur Microscopic EXAM NOT REQUIRED, Urine Hemoglobin NEG, Urine Glucose NEG 02/01/18 1352: Anion Gap 9, Estimated GFR > 60, BUN/Creatinine Ratio 11.1, Glucose 100 H, Lactic Acid 0.5 L, Calcium 8.5, Total Bilirubin 0.4, AST 12 L, ALT 22, Alkaline Phosphatase 111, Troponin I < 0.01, Total Protein 5.2 L, Albumin 3.2 L, Globulin 2.0, Albumin/Globulin Ratio 1.6, Amylase 79, Lipase 1095 H, 25-OH Vitamin D Total 14.6 L, TSH 2.590, RBC 3.78 L, MCV 88.5, MCH 29.6, MCHC 33.4, RDW 16.4 H, MPV 7.3 L, Gran % 56.3, Lymphocytes % 27.6, Monocytes % 7.7, Eosinophils % 7.4 H, Basophils % 1.0, Absolute Granulocytes 3.5, Absolute Lymphocytes 1.7, Absolute Monocytes 0.5, Absolute Eosinophils 0.5, Absolute Basophils 0.1, Serum Alcohol < 10.0 Microbiology 02/01 1354 MISC O.R.: Miscellaneous Culture - CAN Cancelled: Cancelled via OE: COMPLETED BY FOOT 02/01 1354 MISC O.R.: Gram Stain - CAN Cancelled: Cancelled via OE: COMPLETED BY FOOT Assessment/Plan Assessment: Patient is a 47 yo M with a PMHx of pancreatitis, bipolar disorder, pancreatic divisum and cholecystectomy, who is being treated for acute pancreatitis with unremarkable alk phos, Ca2+, ALT/AST and lipid panels. Plan: 1. Recurrent pancreatitis continue on IV fluids and analgesics, food and liquids as tolerated. Further investigation of cause with outpatient GI (Dr. Narayan from [facility]) 2. Bipolar Disorder continue home medications 3. Lumbar compression fx possible DEXA scan as outpatient
[2018-02-03 14:38] VITALS: BP 140/62
--- NOTE | 2018-02-03 16:21 | PN- Gastroenterology ---
Assessment/Plan GI Assessment/Recommendations: Chronic pain syndrome deemed secondary to pancreatitis, with exacerbation. Recommendations * Clear liquid diet * IV analgesics (Dilaudid) * Parenteral antiemetics as needed * PPI Subjective Subjective: Slight improvement in pain. Still with nausea. Not hungry or thirsty. Objective Vital Signs and I&Os Vital Signs Date Time Temp Pulse Resp B/P B/P Pulse O2 O2 Flow FiO2 Mean Ox Delivery Rate 02/03 1438 97.2 78 18 140/62 92 Room Air 02/03 0549 97.5 71 20 112/68 97 Room Air 02/02 2207 98.2 79 20 140/81 95 Room Air Intake & Output 02/03 1600 02/03 0400 02/02 1600 02/02 0400 02/01 1600 02/01 0400 Intake Total 5013 916 6255 600 1000 Output Total 2700 450 1200 250 400 Balance -1590 150 550 350 600 Intake, IV 1464 154 6323 400 1000 Intake, Oral 60 250 200 Number 0 0 Bowel Movements Output, Urine 2700 450 1200 250 400 Patient 154 lb 155 lb 155 lb Weight Weight Reported by Patient Measurement Method Physical Exam: Alert and oriented. Sclera anicteric. Abdomen soft, nondistended; mild epigastric tenderness. Current Medications: Current Medications Sig/Chilo Start time Last Medication Dose Route Stop Time Status Admin Acetaminophen 1,000 MG ONCE ONE 02/02 2015 DC 02/02 N/A 1 UNIT IV 02/02 Acetaminophen 325 MG Q8P PRN 02/01 1745 AC PO Bupropion HCl 300 MG QAM 02/02 0900 AC 02/03 PO 0955 Dextrose/Lactated 1,000 ML Q13H 02/02 1630 AC 02/03 Ringer's IV 0547 Dextrose/Sodium 1,000 ML Q13H 02/02 1630 CAN Chloride IV Enoxaparin Sodium 40 MG DAILY 02/03 0900 02/03 SC 0957 Ergocalciferol 50,000 IU ONCE ONE 02/03 1330 DC 02/03 PO 02/03 1331 1453 Hydromorphone HCl 1 MG Q6P PRN 02/02 1030 AC 02/03 IV 1613 Lactated Ringer's 1,000 ML .Q10H 02/01 1745 DC 02/02 IV 02/02 2113 1049 Lipase/Protease/ 3 CAP WM 02/02 1700 AC 02/03 Amylase PO 1241 Morphine Sulfate 2 MG Q4P PRN 02/02 1045 MO 02/03 IV 1409 Non-Formulary 0 SEE ADMIN CRITERIA 02/02 1630 CAN Medication ANY Omeprazole 40 MG DAILY AC 02/02 0700 AC 02/03 PO 0540 Ondansetron HCl 4 MG TID PRN 02/01 1930 02/03 PO 0859 Patient Medication 1 ED ONE ONE 02/03 1100 [facility] ED 02/03 1101 Patient Medication 1 ED ONE ONE 02/02 1645 [facility] ED 02/02 1646 Quetiapine Fumarate 300 MG QPM 02/01 2100 02/01 PO 2142 Trimethobenzamide HCl 200 MG ONCE ONE 02/02 2030 [place] 02/02 IM 02/02 Results Pertinent Lab Results: Laboratory Tests 02/02 02/02 02/01 0835 0745 1421 Chemistry Sodium (137 - 145 mmol/L) 140 Potassium (3.5 - 5.1 mmol/L) 4.2 Chloride (98 - 107 mmol/L) 106 Carbon Dioxide (22 - 30 mmol/L) 25 Anion Gap (5 - 16) 9 BUN (9 - 20 mg/dL) 8 L Creatinine (0.7 - 1.2 mg/dL) 0.9 Estimated GFR (>60 ml/min) > 60 BUN/Creatinine Ratio (7 - 25 %) 8.9 Lactic Acid Cancelled Triglycerides (<150 mg/dL) 106 Cholesterol (< 200 MG/DL) 108 LDL Cholesterol, Calc (65 - 129 mg/dL) 53 L HDL Cholesterol (40 - 60 mg/dL) 34 L Cholesterol/HDL Ratio (0.00 - 4.88 %) 3 Hematology WBC (4.8 - 10.8 /CUMM) 7.4 RBC (4.70 - 6.10 /CUMM) 4.06 L Hgb (14.0 - 18.0 G/DL) 12.2 L Hct (42 - 52 %) 36.6 L MCV (80.0 - 94.0 FL) 90.0 MCH (27.0 - 31.0 PG) 30.0 MCHC (33.0 - 37.0 G/DL) 33.3 RDW (11.5 - 14.5 %) 16.5 H Plt Count (130 - 400 /CUMM) Gran % (42.2 - 75.2 %) 42.7 Lymphocytes % (20.5 - 51.1 %) 41.1 Monocytes % (1.7 - 9.3 %) 7.5 Eosinophils % (0 - 5 %) 7.7 H Basophils % (0.0 - 2.0 %) 1.0 Absolute Granulocytes (1.4 - 6.5 /CUMM) 3.1 Absolute Lymphocytes (1.2 - 3.4 /CUMM) 3.0 Absolute Monocytes (0.10 - 0.60 /CUMM) 0.5 Absolute Eosinophils (0.0 - 0.7 /CUMM) 0.6 Absolute Basophils (0.0 - 0.2 /CUMM) 0.1 02/01 02/01 1415 1352 Chemistry Sodium (137 - 145 mmol/L) 139 Potassium (3.5 - 5.1 mmol/L) 3.8 Chloride (98 - 107 mmol/L) 104 Carbon Dioxide (22 - 30 mmol/L) 26 Anion Gap (5 - 16) 9 BUN (9 - 20 mg/dL) 10 Creatinine (0.7 - 1.2 mg/dL) 0.9 Estimated GFR (>60 ml/min) > 60 BUN/Creatinine Ratio (7 - 25 %) 11.1 Glucose (65 - 99 mg/dL) 100 H Lactic Acid (0.7 - 2.1 mmol/L) 0.5 L Calcium (8.4 - 10.2 mg/dL) 8.5 Total Bilirubin (0.2 - 1.3 mg/dL) 0.4 AST (17 - 59 U/L) 12 L ALT (21 - 72 U/L) 22 Alkaline Phosphatase (< 127 U/L) 111 Troponin I (<0.11 ng/ml) < 0.01 Total Protein (6.3 - 8.2 g/dL) 5.2 L Albumin (3.5 - 5.0 g/dL) 3.2 L Globulin (1.9 - 4.2 gm/dL) 2.0 Albumin/Globulin Ratio (1.1 - 2.2 %) 1.6 Amylase (30 - 110 U/L) 79 Lipase (23 - 300 U/L) 1095 H 25-OH Vitamin D Total (30 - 100 ng/ml) 14.6 L TSH (0.270 - 4.200 uIU/mL) 2.590 Hematology WBC (4.8 - 10.8 /CUMM) 6.2 RBC (4.70 - 6.10 /CUMM) 3.78 L Hgb (14.0 - 18.0 G/DL) 11.2 L Hct (42 - 52 %) 33.4 L MCV (80.0 - 94.0 FL) 88.5 MCH (27.0 - 31.0 PG) 29.6 MCHC (33.0 - 37.0 G/DL) 33.4 RDW (11.5 - 14.5 %) 16.4 H Plt Count (130 - 400 /CUMM) 360 MPV (7.4 - 10.4 FL) 7.3 L Gran % (42.2 - 75.2 %) 56.3 Lymphocytes % (20.5 - 51.1 %) 27.6 Monocytes % (1.7 - 9.3 %) 7.7 Eosinophils % (0 - 5 %) 7.4 H Basophils % (0.0 - 2.0 %) 1.0 Absolute Granulocytes (1.4 - 6.5 /CUMM) 3.5 Absolute Lymphocytes (1.2 - 3.4 /CUMM) 1.7 Absolute Monocytes (0.10 - 0.60 /CUMM) 0.5 Absolute Eosinophils (0.0 - 0.7 /CUMM) 0.5 Absolute Basophils (0.0 - 0.2 /CUMM) 0.1 Toxicology Serum Alcohol (<10 MG/DL) < 10.0 Urines Urine Color (YEL,AMB,STR) YEL Urine Clarity (CLEAR) CLEAR Urine pH (5.0 - 8.0) 6.5 Ur Specific [place] (1.001 - 1.035) 1.010 Urine Protein (NEG,<30 MG/DL) NEG Urine Ketones (NEG) NEG Urine Nitrite (NEG) NEG Urine Bilirubin (NEG) NEG Urine Urobilinogen (0.1 - 1.0 EU/dl) 0.2 Ur Leukocyte Esterase (NEG) NEG Ur Microscopic EXAM NOT REQUIRED Urine Hemoglobin (NEG) NEG Urine Glucose (N MG/DL) NEG
[2018-02-03 22:15] VITALS: BP 142/60
[2018-02-04 06:36] VITALS: BP 104/66
--- NOTE | 2018-02-04 07:11 | PN- Housestaff ---
See Addendum Subjective Follow-up For: chronic abdominal pain with acute exacerbation pancreatitis Subjective: patient complains of ongoing severe epigastric abdominal pain, only mildly improved from the time of admission, currently a 03/09, radiating to the back afebrile no tachycardia reportedly had 2 episodes of bilious vomiting last night with complaints of nausea, poor appetite Review of Systems Constitutional: Reports: see HPI. Objective Last 24 Hrs of Vital Signs/I&O Vital Signs Date Time Temp Pulse Resp B/P B/P Pulse O2 O2 Flow FiO2 Mean Ox Delivery Rate 02/04 0636 98.0 80 16 104/66 96 Room Air 02/03 2215 98.3 83 19 142/60 97 Room Air 02/03 1438 97.2 78 18 140/62 92 Room Air Intake & Output 02/04 1600 02/04 0800 02/04 0000 Intake Total 720 1005 Output Total 1050 750 Balance -330 255 Intake, IV 600 525 Intake, Oral 120 480 Output, 50 Emesis Output, Urine 1050 700 Patient 74.899 kg Weight Weight Bed scale Measurement Method Physical Exam General Appearance: Alert, Oriented X3, Cooperative, No Acute Distress Cardiovascular: Regular Rate, Normal S1, Normal S2, No Murmurs Lungs: Clear to Auscultation, Normal Air Movement Abdomen: Normal Bowel Sounds, Soft, No Masses, significant epigastric tenderness to light palpation Extremities: No Clubbing, No Cyanosis, No Edema, Normal Pulses Current Medications: Current Medications Sig/Chilo Start time Last Medication Dose Route Stop Time Status Admin Acetaminophen 325 MG Q8P PRN 02/01 1745 AC PO Bupropion HCl 300 MG QAM 02/02 0900 02/03 PO 0955 Dextrose/Lactated 1,000 ML Q13H 02/02 1630 02/04 Ringer's IV 0516 Enoxaparin Sodium 40 MG DAILY 02/03 0900 02/03 SC 0957 Ergocalciferol 50,000 IU ONCE ONE 02/03 1330 DC 02/03 PO 02/03 1331 1453 Hydromorphone HCl 1 MG Q6P PRN 02/02 1030 AC 02/04 IV 0404 Lipase/Protease/ 3 CAP WM 02/02 1700 AC 02/03 Amylase PO 1804 Morphine Sulfate 2 MG Q4P PRN 02/02 1045 DC 02/03 IV 1409 Omeprazole 40 MG DAILY AC 02/02 0700 AC 02/04 PO 0404 Ondansetron HCl 4 MG TID PRN 02/01 1930 AC 02/03 PO 1715 Patient Medication 1 ED ONE ONE 02/03 1100 DC 02/03 Teaching ED 02/03 1101 1804 Quetiapine Fumarate 300 MG QPM 02/01 2100 AC 02/03 PO 2126 Assessment/Plan Assessment: 47 year old male w a PMH of pancreatitis and well controlled bipolar disorder, previous alcohol abuse (quit 20y ago), cholelithiasis s/p cholecystectomy in 2008, and pancreatitis (pancreatic divisum) presented with severe epigastric abdominal pain with associated nausea and aggravated by oral intake, an elevated serum lipase, and unremarkable CT abdomen. Pancreatitis: acute-recurrent Former etoh abuse, current smoker Multiple episodes of pancreatitis in the past, most recently 8 months ago, treated at [facility] Outpatient GI Dr. Guzman from [place] [facility]. Tachycardic on presentation with severe epigastric pain, abdominal distention Elevated lipase 1095. ALT/AST unremarkable, alkaline phosphatase normal, calcium 8.[address] scan 4 mm nonobstructive calculus in the right kidney, 11 mm low- attenuation lesion on the left upper kidney, L1 new compression fracture. The liver is of normal size and attenuation without focal lesions nor intrahepatic biliary ductal dilation. The patient is status post cholecystectomy. Surgical clips are identified. The spleen, pancreas, adrenal glands are unremarkable. Gastroenterology consultation, appreciate recommendations Continue hydration with lactated ringers 75cc/hr Anticipate starting low fat diet with pancreatic enzyme supplementation tomorrow Dilaudid IV prn for analgesia Zofran for nausea Triglycerides unremarkable Obtained outpatient type copyist Dr. Guzman H/o pancreatic divisum, sphincterotomy and celiac plexus block Advance diet as tolerated Consider switching to oral analgesia today Bipolar disorder: Continue seroquel and wellbutrin Oupatient psychiatrist- Dr. Sexton Lumbar compression fracture Chest x-ray shows compression deformities of thoracic spine CT shows L1 new compression fracture Thyroid normal, vitamin D supplemented Orthopedic spine consult with Dr. Herrera Outpatient DEXA scan Clear liquid diet DVT [id number] Full code Problem List: 1. Acute pancreatitis 2. Pancreatitis 3. Abdominal pain Pain Ratin Pain Location: epigastric Pain Goal: Pain 4 or less Pain Plan: prn dilaudid Tomorrow's Labs & Rationales: cbc, kacey, mag
--- NOTE | 2018-02-04 07:40 | PN- Student ---
Subjective Subjective: 47 year old male with PMHx of recurrent pancreatitis s/p cholecystectomy and bipolar disorder being treated for pancreatitis. Yesterday afternoon he reported his abdominal pain as a 5 or 6/10 and was able to walk 4 laps around the floor without increasing his pain. He noted some lower back pain during his walk. 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 His abdominal pain has gone back up to a 7/10 this morning. He continues to have nausea and had one episode of bilious vomiting last night and has not had a bowel movement since Thursday. He ate part of a tuna fish sandwich for lunch which increased his pain to a 9/10, requiring a one time dose of morphine for pain control. He denies PARKINSON and dizziness but admits to passing gas. Objective Objective: Vital Signs Date Time Temp Pulse Resp B/P B/P Pulse O2 O2 Flow FiO2 Mean Ox Delivery Rate 02/04 0636 98.0 80 16 104/66 96 Room Air 02/03 2215 98.3 83 19 142/60 97 Room Air 02/03 1438 97.2 78 18 140/62 92 Room Air Physical Exam General: AO x 3, appears uncomfortable Cardiac: RRR, slight systolic murmur Lungs: no accessory muscle use, clear to auscultation Abdomen: slightly distended, firm, epigastric and LUQ tenderness to palpation with guarding MSK: tenderness to palpation in lumbar spine, no LE edma, no clubbing Intake & Output 02/04 0800 02/04 0000 02/03 1600 Intake Total 720 1005 660 Output Total 1303 595 3021 Balance -330 255 -940 Intake, IV 600 525 600 Intake, Oral 120 480 60 Number 0 Bowel Movements Output, 50 Emesis Output, Urine 5789 485 7720 Patient 165 lb 154 lb Weight Weight Bed scale Measurement Method Current Medications Sig/Chilo Start time Last Medication Dose Stop Time Status Admin Acetaminophen 325 MG Q8P PRN 02/01 1745 AC (Tylenol) Bupropion HCl 300 MG QAM 02/02 0900 AC 02/03 (Wellbutrin XL) 0955 Dextrose/Lactated 1,000 ML Q13H 02/02 1630 AC 02/04 Ringer's 0516 (D5W in Lactated Ringers) Enoxaparin Sodium 40 MG DAILY 02/03 0900 AC 02/03 (Lovenox) 0957 Hydromorphone HCl 1 MG Q6P PRN 02/02 1030 AC 02/04 (Dilaudid) 0404 Lipase/Protease/ 3 CAP WM 02/02 1700 AC 02/03 Amylase 1804 (Creon-24) Omeprazole 40 MG DAILY AC 02/02 0700 AC 02/04 (Prilosec) 0404 Ondansetron HCl 4 MG TID PRN 02/01 1930 AC 02/03 (Zofran) 1715 Quetiapine Fumarate 300 MG QPM 02/01 2100 AC 02/03 (Seroquel) 2125 Assessment/Plan Assessment: 47 year old male with PMHx of recurrent pancreatitis s/p cholecystectomy, well- controlled bipolar disorder, previous EtOH abuse 20 years ago and current tobacco use presenting with severe epigastric pain with radiation to the back, n /v and lipase of 1095. Plan: 1. Recurrent pancreatitis Gastroenterology consult h/o pancreatic divisum, sphincterotomy and celiac plexus block Hydration with lactated ringers 75 cc/hr Feeding P.O. as tolerated, with pancreatic enzyme supplementation Dilaudid IV for analgesia Zofran for nausea 2. Lumbar compression fracture Dr. Arango recommends a brace to reduce pain with ambulation Outpatient DEXA scan 3. Bipolar disorder Continue seroquel and wellbutrin Continue outpatient psych
--- NOTE | 2018-02-04 10:50 | PN- Gastroenterology ---
Assessment/Plan GI Assessment/Recommendations: Chronic pain syndrome deemed secondary to pancreatitis, with exacerbation. The patient has been extensively evaluated at [facility], although I do not have these records currently. Recommendations * Low-fat diet as tolerated * Pancreatic enzyme supplementation with meals (lipase 12,000 units) * Pain management consultation * Parenteral antiemetics as needed * PPI Subjective Subjective: Continued anorexia and pain. Objective Vital Signs and I&Os Vital Signs Date Time Temp Pulse Resp B/P B/P Pulse O2 O2 Flow FiO2 Mean Ox Delivery Rate 02/04 0636 98.0 80 16 104/66 96 Room Air 02/03 2215 98.3 83 19 142/60 97 Room Air 02/03 1438 97.2 78 18 140/62 92 Room Air Intake & Output 02/04 0400 02/03 1600 02/03 0400 02/02 1600 02/02 0400 Intake Total 720 1005 1725 532 2176 600 Output Total 1508 460 6759 450 1200 250 Balance -330 255 -1590 150 550 350 Intake, IV 834 434 6316 600 1500 400 Intake, Oral 120 480 60 250 200 Number 0 0 Bowel Movements Output, 50 Emesis Output, Urine 9414 194 8989 450 1200 250 Patient 165 lb 154 lb 155 lb Weight Weight Bed scale Reported by Patient Measurement Method Physical Exam: Abdomen soft, nondistended, mildly tender. Current Medications: Current Medications Sig/Chilo Start time Last Medication Dose Route Stop Time Status Admin Acetaminophen 325 MG Q8P PRN 02/01 1745 AC PO Bupropion HCl 300 MG QAM 02/02 09 AC 02/04 PO 0814 Dextrose/Lactated 1,000 ML Q13H 02/02 1630 AC 02/04 Ringer's IV 0516 Enoxaparin Sodium 40 MG DAILY 02/03 0900 AC 02/04 SC 0814 Ergocalciferol 50,000 IU ONCE ONE 02/03 1330 DC 02/03 PO 02/03 1331 1453 Hydromorphone HCl 1 MG Q6P PRN 02/02 1030 AC 02/04 IV 0914 Lipase/Protease/ 3 CAP WM 02/02 1700 AC 02/04 Amylase PO 0814 Morphine Sulfate 2 MG Q4P PRN 02/02 1045 DC 02/03 IV 1409 Omeprazole 40 MG DAILY AC 02/02 0700 AC 02/04 PO 0404 Ondansetron HCl 4 MG TID PRN 02/01 1930 AC 02/03 PO 1715 Patient Medication 1 ED ONE ONE 02/03 1100 DC 02/03 Teaching ED 02/03 1101 1804 Quetiapine Fumarate 300 MG QPM 02/01 2100 AC 02/03 PO 2126 Results Pertinent Lab Results: Laboratory Tests 02/02 02/02 02/01 0835 0745 1421 Chemistry Sodium (137 - 145 mmol/L) 140 Potassium (3.5 - 5.1 mmol/L) 4.2 Chloride (98 - 107 mmol/L) 106 Carbon Dioxide (22 - 30 mmol/L) 25 Anion Gap (5 - 16) 9 BUN (9 - 20 mg/dL) 8 L Creatinine (0.7 - 1.2 mg/dL) 0.9 Estimated GFR (>60 ml/min) > 60 BUN/Creatinine Ratio (7 - 25 %) 8.9 Lactic Acid Cancelled Triglycerides (<150 mg/dL) 106 Cholesterol (< 200 MG/DL) 108 LDL Cholesterol, Calc (65 - 129 mg/dL) 53 L HDL Cholesterol (40 - 60 mg/dL) 34 L Cholesterol/HDL Ratio (0.00 - 4.88 %) 3 Hematology WBC (4.8 - 10.8 /CUMM) 7.4 RBC (4.70 - 6.10 /CUMM) 4.06 L Hgb (14.0 - 18.0 G/DL) 12.2 L Hct (42 - 52 %) 36.6 L MCV (80.0 - 94.0 FL) 90.0 MCH (27.0 - 31.0 PG) 30.0 MCHC (33.0 - 37.0 G/DL) 33.3 RDW (11.5 - 14.5 %) 16.5 H Plt Count (130 - 400 /CUMM) Gran % (42.2 - 75.2 %) 42.7 Lymphocytes % (20.5 - 51.1 %) 41.1 Monocytes % (1.7 - 9.3 %) 7.5 Eosinophils % (0 - 5 %) 7.7 H Basophils % (0.0 - 2.0 %) 1.0 Absolute Granulocytes (1.4 - 6.5 /CUMM) 3.1 Absolute Lymphocytes (1.2 - 3.4 /CUMM) 3.0 Absolute Monocytes (0.10 - 0.60 /CUMM) 0.5 Absolute Eosinophils (0.0 - 0.7 /CUMM) 0.6 Absolute Basophils (0.0 - 0.2 /CUMM) 0.1 02/01 02/01 1415 1352 Chemistry Sodium (137 - 145 mmol/L) 139 Potassium (3.5 - 5.1 mmol/L) 3.8 Chloride (98 - 107 mmol/L) 104 Carbon Dioxide (22 - 30 mmol/L) 26 Anion Gap (5 - 16) 9 BUN (9 - 20 mg/dL) 10 Creatinine (0.7 - 1.2 mg/dL) 0.9 Estimated GFR (>60 ml/min) > 60 BUN/Creatinine Ratio (7 - 25 %) 11.1 Glucose (65 - 99 mg/dL) 100 H Lactic Acid (0.7 - 2.1 mmol/L) 0.5 L Calcium (8.4 - 10.2 mg/dL) 8.5 Total Bilirubin (0.2 - 1.3 mg/dL) 0.4 AST (17 - 59 U/L) 12 L ALT (21 - 72 U/L) 22 Alkaline Phosphatase (< 127 U/L) 111 Troponin I (<0.11 ng/ml) < 0.01 Total Protein (6.3 - 8.2 g/dL) 5.2 L Albumin (3.5 - 5.0 g/dL) 3.2 L Globulin (1.9 - 4.2 gm/dL) 2.0 Albumin/Globulin Ratio (1.1 - 2.2 %) 1.6 Amylase (30 - 110 U/L) 79 Lipase (23 - 300 U/L) 1095 H 25-OH Vitamin D Total (30 - 100 ng/ml) 14.6 L TSH (0.270 - 4.200 uIU/mL) 2.590 Hematology WBC (4.8 - 10.8 /CUMM) 6.2 RBC (4.70 - 6.10 /CUMM) 3.78 L Hgb (14.0 - 18.0 G/DL) 11.2 L Hct (42 - 52 %) 33.4 L MCV (80.0 - 94.0 FL) 88.5 MCH (27.0 - 31.0 PG) 29.6 MCHC (33.0 - 37.0 G/DL) 33.4 RDW (11.5 - 14.5 %) 16.4 H Plt Count (130 - 400 /CUMM) 360 MPV (7.4 - 10.4 FL) 7.3 L Gran % (42.2 - 75.2 %) 56.3 Lymphocytes % (20.5 - 51.1 %) 27.6 Monocytes % (1.7 - 9.3 %) 7.7 Eosinophils % (0 - 5 %) 7.4 H Basophils % (0.0 - 2.0 %) 1.0 Absolute Granulocytes (1.4 - 6.5 /CUMM) 3.5 Absolute Lymphocytes (1.2 - 3.4 /CUMM) 1.7 Absolute Monocytes (0.10 - 0.60 /CUMM) 0.5 Absolute Eosinophils (0.0 - 0.7 /CUMM) 0.5 Absolute Basophils (0.0 - 0.2 /CUMM) 0.1 Toxicology Serum Alcohol (<10 MG/DL) < 10.0 Urines Urine Color (YEL,AMB,STR) YEL Urine Clarity (CLEAR) CLEAR Urine pH (5.0 - 8.0) 6.5 Ur Specific [place] (1.001 - 1.035) 1.010 Urine Protein (NEG,<30 MG/DL) NEG Urine Ketones (NEG) NEG Urine Nitrite (NEG) NEG Urine Bilirubin (NEG) NEG Urine Urobilinogen (0.1 - 1.0 EU/dl) 0.2 Ur Leukocyte Esterase (NEG) NEG Ur Microscopic EXAM NOT REQUIRED Urine Hemoglobin (NEG) NEG Urine Glucose (N MG/DL) NEG
--- NOTE | 2018-02-04 13:35 | Event Note ---
Event Note Event Note: Patient reported of 9/10 epigastric pain after lunch. Will give one time 2 mg Morphine for now and continue to monitor.
[2018-02-04 15:26] VITALS: BP 116/70
--- NOTE | 2018-02-04 15:33 | Cons- Orthopedic ---
Osmani Brewer 02/04/18 1525: General Information and HPI Consulting Request Date of Consult: 02/04/18 Requested By: Faiza Rodriguez MD Reason for Consult: L1 compression fracture Source of Information: patient, old records Exam Limitations: no limitations History of Present Illness: Mr. Ennis is a 47-year-old male resented to [facility] complaining of abdominal pain mid to the medical service. However abdominal CAT scan obtained in the emergency room upon admission revealed a new L1 compression fracture with minimal height loss. After talking to the patient today he explained that approximately 2 weeks ago he was moving a couch and felt a pop in his back. He states that he had persistent worsening pain in his lower back occasionally radiated to his right anterior lateral thigh. Not complaining of any weakness or loss of bladder or bowel function associated with this injury. Today he states however when he does get up and move around does have pain in his lower back down the middle in the spine area. He denies previous back injury or back symptoms. Allergies/Medications Allergies: Coded Allergies: prochlorperazine (From COMPAZINE) (SHAKING 03/30/17) Home Med List: Bupropion HCl (Bupropion XL) 300 MG TAB.ER.24H 1 TAB PO QAM MENTAL HEALTH ( Reported) Ondansetron (Zofran Odt) 4 MG TAB.RAPDIS 1 TAB SL TID PRN nausea Pantoprazole Sodium 40 MG TABLET.DR 1 TAB PO DAILY ACID REFLUX (Reported) Quetiapine Fumarate 300 MG TABLET 1 TAB PO QPM SLEEP (Reported) Past History Medical History Neurological: NONE EENT: NONE Cardiovascular: NONE Respiratory: NONE Gastrointestinal: pancreatitis Hepatic: NONE Renal: NONE Musculoskeletal: NONE Psychiatric: bipolar disease Endocrine: NONE Blood Disorders: NONE Cancer(s): NONE 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 Surgical History Pertinent Surgical History: cholecystectomy Psychosocial History Smoking Status: Current Everyday Smoker ETOH Use: denies use Illicit Drug Use: denies illicit drug use Exam & Diagnostic Data Vital Signs and I&O Vital Signs Date Time Temp Pulse Resp B/P B/P Pulse O2 O2 Flow FiO2 Mean Ox Delivery Rate 02/04 1526 97.7 78 18 116/70 96 02/04 0636 98.0 80 16 104/66 96 Room Air 02/03 2215 98.3 83 19 142/60 97 Room Air Intake & Output 02/04 1600 06/07 0800 06/07 0000 06/ 1600 06/06 0800 06/ 0000 Intake Total 060 318 7776 660 450 600 Output Total 350 3401 017 1083 1100 450 Balance 475 -330 255 -940 -650 150 Intake, IV 525 600 525 600 450 600 Intake, Oral 300 120 480 60 Number 0 0 0 Bowel Movements Output, 50 Emesis Output, Urine 350 0369 061 4605 1100 450 Patient 165 lb 154 lb Weight Weight Bed scale Measurement Method Physical Exam General Appearance: alert, awake, anxious Head: atraumatic, normal appearance Eyes: Bilateral: PERRL. Respiratory: normal breath sounds Cardiovascular: regular rate/rhythm Gastrointestinal: non-tender Rectal: tenderness to palpation of the lumbar spine in the region of lumbar 1. There is no bruising or ecchymosis or skin disruptions in this area. Bilateral lower extremities there is normal motor and sensory function without significant deficit. Extremities: no edema Neurologic/Psych: there are no motor or sensory deficits in bilateral lower extremities Imaging Results: SERVICE DATE: 02/01/18 EXAM TYPE: CAT - CT ABD & PELVIS W/O IV CONTRAS EXAMINATION: CT ABDOMEN AND PELVIS WITHOUT CONTRAST CLINICAL INFORMATION: Epigastric pain. COMPARISON: 03/30/2017. TECHNIQUE: Contiguous axial thin section helical images of the abdomen and pelvis were performed without oral or IV contrast. The data set was reformatted in the coronal and sagittal planes and reviewed on an independent workstation. DLP: 345 mGy-cm. FINDINGS: The visualized lung bases are clear. The visualized portions of the heart are unremarkable. The liver is of normal size and attenuation without focal lesions nor intrahepatic biliary ductal dilation. The patient is status post cholecystectomy. Surgical clips are identified. The spleen, pancreas, adrenal glands are unremarkable. Both kidneys are of normal size and attenuation without hydronephrosis. There is a 4 mm nonobstructive calculus within the interpole region of the right kidney. There is a stable 11 mm low-attenuation lesion within the upper pole of left kidney, likely circulation sales representative of a cyst. There is no abdominal free fluid. There is neither mesenteric nor retroperitoneal lymphadenopathy. Normal unopacified loops of small and large bowel are identified. There is no pelvic free fluid. The urinary bladder is unremarkable. There is neither pelvic nor inguinal lymphadenopathy. Bone windows: Neither sclerotic nor lytic bone lesions are identified. There is stable height loss and mild anterior wedging to the T11 vertebral body. There is new mild anterior wedging to the inferior endplate of L1 with mild anterior height loss. IMPRESSION: New compression fracture to the L1 vertebral body with mild height loss.. No evidence for acute abdominal or pelvic inflammatory or infectious processes. No abdominal or pelvic lymphadenopathy. 4 mm nonobstructive right renal calculus. Status post cholecystectomy. DICTATED BY: Lopez Gonsalez MD DATE/TIME DICTATED:02/01/181301 JUDGE:PABLITO DATE/TIME TRANSCRIBED:02/01/181301 Assessment/Plan Assessment/Plan Mr. Ennis is a 47-year-old male who was admitted for abdominal pain by the medical service. At scan obtained in the emergency room demonstrates L1 compression fracture with minimal height loss. Scans were reviewed by Dr. Arango who felt that the patient would benefit from bracing when ambulatory to minimize his low back pain. Plan At this time we will attempt to order a TLSO brace from [employer] [facility]. He should be fitted and ambulated with physical therapy prior to discharge with this TLSO brace. Dr. Arango will evaluate the patient in a.m. This diagnosis and treatment was discussed with the patient and he is in agreement Consult Acknowledgment - Thank you for your consult request. Robbin Arango MD 02/05/18 0718: Assessment/Plan Consult Acknowledgment - Thank you for your consult request. Attending MD Review Statement Attending Statement Attending Assessment/Plan: Agree with above. L1 compression fracture. May use TLSO for comfort while ambulating. No surgical intervention necessary. Follow up in 4 weeks for repeat xray.
[2018-02-04 22:28] VITALS: BP 140/80
[2018-02-05 06:55] VITALS: BP 100/64
--- NOTE | 2018-02-05 07:08 | PN- Housestaff ---
Irene FARNSWORTH,Jewel 02/05/18 0708: Subjective Follow-up For: acute on chronic abdominal pain pancreatitis Subjective: patient is still reporting a 7/10 epigastric abdominal pain was able to eat half a sandwich and part of his dinner last night but required some iv morphine for pain after that, poor peripheral IV access, currently in foot afebrile no diarrhea Review of Systems Constitutional: Reports: see HPI. Objective Last 24 Hrs of Vital Signs/I&O Vital Signs Date Time Temp Pulse Resp B/P B/P Pulse O2 O2 Flow FiO2 Mean Ox Delivery Rate 02/05 0655 97.8 66 18 100/64 94 Room Air 02/04 2228 98.7 86 19 140/80 98 Room Air 02/04 1526 97.7 78 18 116/70 96 Intake & Output 02/05 1600 02/05 0800 02/05 0000 Intake Total 140 855 Output Total 500 600 Balance -360 255 Intake, IV 20 375 Intake, Oral 120 480 Output, Urine 500 600 Patient 75.807 kg Weight Weight Bed scale Measurement Method Physical Exam General Appearance: Alert, Oriented X3, Cooperative, No Acute Distress Cardiovascular: Regular Rate, Normal S1, Normal S2, No Murmurs Lungs: Clear to Auscultation, Normal Air Movement Abdomen: Normal Bowel Sounds, Soft, No Masses, epigastric tenderness to light palpation Extremities: No Clubbing, No Cyanosis, No Edema, Normal Pulses Current Medications: Current Medications Sig/Chilo Start time Last Medication Dose Route Stop Time Status Admin Acetaminophen 325 MG Q8P PRN 02/01 1745 AC PO Bupropion HCl 300 MG QAM 02/02 09 AC 02/04 PO 0814 Dextrose/Lactated 1,000 ML Q13H 02/02 1630 DC 02/04 Ringer's IV 0516 Enoxaparin Sodium 40 MG DAILY 02/03 0900 02/04 SC 0814 Hydromorphone HCl 1 MG Q6P PRN 02/02 1030 AC 02/05 IV 0232 Lipase/Protease/ 3 CAP WM 02/02 1700 AC 02/04 Amylase PO 1858 Morphine Sulfate 1 MG ONCE ONE 02/04 1900 DC 02/04 IV 02/04 1901 1905 Morphine Sulfate 2 MG ONCE ONE 02/04 1345 DC 02/04 IV 02/04 1346 1348 Omeprazole 40 MG DAILY AC 02/02 0700 AC 02/05 PO 0603 Ondansetron HCl 4 MG TID PRN 02/01 1930 AC 02/04 PO 1306 Patient Medication 1 ED ONE ONE 02/04 1645 DC 02/04 Teaching ED 02/04 1646 1900 Quetiapine Fumarate 300 MG QPM 02/01 2100 AC 02/04 PO 2138 Assessment/Plan Assessment: 47 year old male w a PMH of pancreatitis and well controlled bipolar disorder, previous alcohol abuse (quit 20y ago), cholelithiasis s/p cholecystectomy in 2008, and pancreatitis (pancreatic divisum) presented with severe epigastric abdominal pain with associated nausea and aggravated by oral intake, an elevated serum lipase, and unremarkable CT abdomen. Pancreatitis: acute-recurrent Former etoh abuse, current smoker Multiple episodes of pancreatitis in the past, most recently 8 months ago, treated at [facility] Obtained records from outpatient GI, Dr. Guzman from [place] [facility]. Elevated lipase 1095. ALT/AST unremarkable, alkaline phosphatase normal, calcium 8.[address] scan 4 mm nonobstructive calculus in the right kidney, 11 mm low- attenuation lesion on the left upper kidney, L1 new compression fracture. The liver is of normal size and attenuation without focal lesions nor intrahepatic biliary ductal dilation. The patient is status post cholecystectomy. Surgical clips are identified. The spleen, pancreas, adrenal glands are unremarkable. Gastroenterology consultation, appreciate recommendations Discontinue IVFs, encourage PO intake Continue pancreatic enzyme supplementation Zofran for nausea Obtained outpatient composition worker Dr. Guzman H/o pancreatic divisum, sphincterotomy and celiac plexus block Continue low fat diet Change to oral dilaudid 2mg po q4prn If patient is unable to tolerate diet with oral analgesia may require transfer to [place] for possible repeat celiac plexus nerve block Pain management consult with Dr. Tinajero pending Bipolar disorder: Continue seroquel and wellbutrin Oupatient psychiatrist- Dr. Sexton Lumbar compression fracture Chest x-ray shows compression deformities of thoracic spine CT shows L1 new compression fracture Low Vitamin D Orthopedic consultation recommended TLSO support brace Outpatient DEXA scan Low fat diet DVT ppx-lovenox Full code Problem List: 1. Acute pancreatitis 2. Abdominal pain Pain Ratin Pain Location: epigastric Pain Goal: Pain 4 or less Pain Plan: po dilaudid Tomorrow's Labs & Rationales: none AroFaiza nichols MD 02/05/18 1100: Attending MD Review Statement Attending Statement Attending MD Statement: examined this patient, discuss w/resident/PA/BENCH HAND MACHINE, agreed w/resident/PA/BENCH HAND MACHINE, reviewed EMR data (avail), discussed with nursing, discussed with case mgmt, amended to note Attending Assessment/Plan: Patient seen and examined. No issues overnight reported by nursing staff. Remains afebrile and hemodynamically stable. Resting comfortably and not in any acute distress. Continues to complain of diffuse abdominal pain. He from admission does report some improvement compared to presentation. He did start yesterday and reports tolerating it. Patient is agreeable to date for trial of oral analgesic therapy. Abdominal pain when eating. He remains afebrile and hemodynamically stable. If he tolerates his oncologist is tolerating his meals and will be discharged over the weekend. We have discussed with the patient we have discussed with patient that, pay for unable to obtain if we are able to obtain significant pain relief with analgesic therapy we would consider transfer to [facility] for reevaluation for celiac nerve block.
--- NOTE | 2018-02-05 07:34 | Discharge Summary ---
Visit Information Visit Dates Admission Date: 02/01/18 Discharge Date: 02/06/2018 Hospital Course Course Attending Physician: Faiza Rodriguez MD Primary Care Physician: Patient Has No Primary Care Dr Consulting Request: Consulting Specialty: Gastroenterology Hospital Course: Mr. Ennis is a 47-year-old male admitted to [facility] complaining of abdominal pain, nausea and vomiting.The pain began 5 days ago and has been worsening. States that at worse it is a 9/10 pain scale, radiates to the back. Had a similar pain during a bout of pancreatitis 8 months ago, was hospitalized for that incident at [facility]. The patient tried Tylenol which he notes did not help. He says food makes the pain worse and as such, has not eaten in 3-4 days. The patient says the pain started 5 days ago while he was watching TV. It was followed by the nausea and vomiting. Patient denies any recent new foods, any alcohol intake (patient hasnt drank alcohol in 20 years), any travel. Patient denies any chest pain, shortness of breath. 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 We will obtain patient 's records from his gastrologist, it shows that the patient has a history of pancreatic divisum and also got his celiac nerve block for his chronic abdominal pain. Patient reports that the nerve block did not help him much. CXR 02/01/18 1. Slight anterior wedge compression deformity of 2 adjacent mid thoracic vertebrae. There is no fracture line. These are indeterminate for age. 2. Old healed fractures of right lateral seventh and eighth ribs in the left fourth rib. 3. No acute change of chest. CAT - CT ABD & PELVIS W/O IV CONTRAS on 02/01/18 New compression fracture to the L1 vertebral body with mild height loss.. No evidence for acute abdominal or pelvic inflammatory or infectious processes. No abdominal or pelvic lymphadenopathy. 4 mm nonobstructive right renal calculus. Status post cholecystectomy. Patient was seen for the following problems Acute on chronic pancreatitis Bipolar disorder Lumbar compression fracture For acute on chronic pancreatitis, the likely etiologies were alcohol abuse and being a current smoker, patient states that he had multiple episodes of pancreatitis and last one was 8 months ago at [facility]. His serum lipase on admission was 1095. ALT/AST were unremarkable. Gastroenterology service was consulted, patient was made n.p.o. initially for pancreatic rest, and continued on D5 Ringer's lactate. Later his diet was advanced to low-fat with pancreatic enzyme supplementation. For pain was getting IV Dilaudid and morphine which was eventually changed to PO 2MGQ4 PRN Dilaudid but he kept complaining of pain. Nausea was treated with Zofran. Patient's triglycerides are unremarkable. Patient was eventually accepted for transfer by Dr. Clinton of the [facility] hospitalist service. For bipolar disorder, patient was continued on his Seroquel and Wellbutrin. Patient follows up with his psychiatrist, Dr. Garay as outpatient. For lumbar compression fracture, orthopedic surgery consult was placed, they recommend TLSO brace from [employer]. No surgical intervention necessary at this time. Advised to follow-up in 4 weeks for repeat x-ray. Allergies: Coded Allergies: prochlorperazine (From COMPAZINE) (SHAKING 03/30/17) Disposition Summary Disposition Principal Diagnosis: Acute on chronic pancreatitis Additional Diagnosis: As above Discharge Disposition: other general hospital Discharge Instructions General Discharge Information Code Status: Full Code Patient's Diet: Low-fat diet as tolerated Patient's Activity: Out of bed as tolerated Follow-Up Instructions/Appts: Patient will be transferred to [facility] where his pancreatitis has been managed before Medications at Discharge Discharge Medications: Continue taking these medications: Bupropion HCl (Bupropion XL) 300 MG TAB.ER.24H 1 Tablet ORAL Every Morning Qty = 30 Comments: Last Taken:02/06/18 Time:8:23A.M Quetiapine Fumarate (Quetiapine Fumarate) 300 MG TABLET 1 Tablet ORAL Every night Qty = 30 Comments: Last Taken:02/05/18 Time:8:31P.M Pantoprazole Sodium (Pantoprazole Sodium) 40 MG TABLET.DR 1 Tablet ORAL DAILY Comments: NOT GIVEN THIS ADMISSION GIVEN PRILOSEC 40MG 02/06/18 @ 6:19A.M Ondansetron (Zofran Odt) 4 MG TAB.RAPDIS 1 Tablet SUBLINGUAL THREE TIMES DAILY as needed for nausea Qty = 10 Comments: Last Taken:02/04/18 Time:1P.M Start taking the following new medications: Cholecalciferol (Vitamin D3) (Vitamin D) 2,000 UNIT TABLET 1 Tablet ORAL DAILY Qty = 30 No Refills Comments: Last Taken:02/06/18 Time:8:23A.M Copies To: Faiza Rodriguez MD Attending MD Review Statement Documenting Attending: Faiza Rodriguez MD
--- NOTE | 2018-02-05 11:32 | PN- Gastroenterology ---
Assessment/Plan GI Assessment/Recommendations: (I assumed the inpt GI service from Dr. Camille Joy on 02/03/18. Dr. Camille Joy 's inpt GI consult of 02/02/18 was appreciated. His [place] medical records were reviewed. [facility] records not available at present). 47 y/o male, longtime cigarette smoker, non-EtOH, no street drugs (although previous medical records state that patient has a history of going to various hospitals for "opioid shopping"), past history of pancreatitis, post CCKY, bipolar disorder, remotely seen in inpt GI consultation by Dr. Pearce 12/13/10 for abdominal pain and retroperitoneal mass found on CT. It was uncertain whether this emanated from the pancreas vs. possible lymphoma and/ or retroperitoneal fibrosis. As it abutted the celiac axis, it was felt to be too dangerous to be needled by IR. Plans at that time were for the patient to have outpt EUS with biopsy at [facility]. The patient has since been followed there. His history is complex. Apparently he had a diagnosis of pancreas divisum, pancreatic sphincterotomy, & EUS with celiac nerve block, which he claimed "didn't work". He then apparently switched his GI care from [facility] to Dr. Narayan, at the [facility] in [place]. He claimed he was off narcotics, but on Creon for pancreatic enzyme supplementation. He denied any history of hyperTG. He was admitted to [place] 02/01/18 (although his records are in [place]), for severe epigastric pain radiating to the back, lipase 1095, TG 106, nl LFTs xc alb 3.2, glob 3.0, WBC 6.2, H/H 11.2/33.4, MCV 88.5, RDW 16.4, PLT 360, nl GFR, glu 100, nl lytes with Ca 8.5, nl lactate, troponin < 0.01, EtOH < 10, nl U/A. There was no evident inflammation on CT, nor any chronic changes (*although limited study, w/o IV cont). He had persistent pain, nausea, and anorexia. A pain management consult was advised. He was also found to have a new L1 compression fracture, which may or may not have been related to his presenting symptoms, and an orthopedic consult was obtained. 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 He had no urinary or fecal incontinence. Orthopedics advised a TLSO brace. The patient denied any FHx GI Ca, pancreatitis, or inherited liver disease. 02/01/18: EKG- NSR @ 91, nl axis, nl intervals, early transition, LVH, w/o acute ischemic changes. 02/01/18: XRY-CHEST XRAY, TWO VIEWS- 1. Slight anterior wedge compression deformity of 2 adjacent mid thoracic vertebrae. There is no fracture line. These are indeterminate for age. DJD. 2. Old healed fractures of right lateral 7th & 8th ribs, and the left 4th rib. 3. No acute change of chest. 4. Surgical clips in the upper abdomen (post CCKY). 02/01/18: CT ABDOMEN AND PELVIS WITHOUT IV or PO CONTRAST (*limited study w/o IV cont)- New compression fracture to the L1 vertebral body with mild height loss. No evidence for acute abdominal or pelvic inflammatory or infectious processes. No abdominal or pelvic lymphadenopathy. Post cholecystectomy. No dilated ducts. No ascites. 4 mm nonobstructive right renal calculus. Stable left renal cyst. As per my d/w the patient & with Dr. Rodriguez on 02/05/18, the patient reportedly had a normal colonoscopy in [place] approximately 2 years ago (? 2015). He also reportedly had an EGD in [place] in 08/2017, that showed "HP-negative gastritis". Dr. Camille Joy had a advised a low-fat diet with pancreatic supplementation, antiemetics, & PPI, with the caveat that he be transferred to [facility] were all of his GI care has been, for possible repeat EUS etc., if his symptoms persisted. A transfer note had already been dictated on 02/05/18, but as per my discussion with Dr. Rodriguez, he was starting to slowly improve, and the transfer to [place] was put on hold for now. *As of 02/05/18, the patient's IV Morphine & IV Dilaudid was switched to Dilaudid 2 mg po Q4h as needed. *He had just received po Dilaudid < 1 hr prior to my exam. He was receiving Creon-24 (24Ku lipase/tab)-> 3 tabs with each meal. He was on Omeprazole 40 mg daily, Zofran ODT 4 mg TID prn, Wellbutrin, Seroquel , Tylenol prn, & Lovenox for DVT prophylaxis. He ate toast this a.m., followed by epigastric pain and mild nausea, but no vomiting. He claimed his current abdominal pain was "8 out of 10", compared to "10 out of 10", upon admission. He claimed his low back pain was a separate entity. He denied any fevers, chills, jaundice, CP, or SOB. He was hemodynamically stable & afebrile, with O2 sat RA 94%. *Please note, the patient's admission CT was somewhat limited regarding the pancreas, without IV contrast. It is difficult to say whether the patient does indeed have low-grade pancreatitis vs. malingering for opioids. *SUGGEST- Advance low-fat diet as tolerated. Would repeat CBC, CMP & obtain CRP for prognostic purposes. Watch for hemoconcentration (i.e.- rising HCT/BUN), which would necessitate resumption of IV fluids. Oral narcotic analgesics as needed (currently on Dilaudid 2 mg po Q4h prn). Continue Creon-24 (24Ku lipase/tab)-> 3 tabs with each meal & 1 tab with snacks. Continue Omeprazole 40 mg daily, Zofran ODT 4 mg TID prn, Wellbutrin, Seroquel, Tylenol prn, & Lovenox for DVT prophylaxis. Mobilize patient as tolerated. TLSO back brace regarding L1 compression fx, per ortho. *Low threshold to transfer to [facility] where his old records are (currently followed for GI in [place] by Dr. Narayan), for consideration of repeat EUS, if subjective symptoms persist. He should ultimately be followed by his GI M.D. in [place], after [facility] discharge. The above was discussed with Dr. Rodriguez on 02/05/18. Problem List: 1. Pancreatitis 2. Abdominal pain 3. Nausea & vomiting 4. Compression fracture of L1 lumbar vertebra Subjective Subjective: *As of 02/05/18, the patient's IV Morphine & IV Dilaudid was switched to Dilaudid 2 mg po Q4h as needed. *He had just received po Dilaudid < 1 hr prior to my exam. He was receiving Creon-24 (24Ku lipase/tab)-> 3 tabs with each meal. He was on Omeprazole 40 mg daily, Zofran ODT 4 mg TID prn, Wellbutrin, Seroquel , Tylenol prn, & Lovenox for DVT prophylaxis. He ate toast this a.m., followed by epigastric pain and mild nausea, but no vomiting. He claimed his current abdominal pain was "8 out of 10", compared to "10 out of 10", upon admission. He claimed his low back pain was a separate entity. He denied any fevers, chills, jaundice, CP, or SOB. He was hemodynamically stable & afebrile, with O2 sat RA 94%. Review of Systems: Full 14 point ROS otherwise noncontributory, and as above. Constitutional: Reports: no symptoms. EENTM: Reports: no symptoms. Cardiovascular: Reports: no symptoms. Respiratory: Reports: no symptoms. GI: Reports: abdominal pain & nausea (vomiting resolved). Musculoskeletal: Reports: no symptoms. Skin: Reports: no symptoms. Neurological/Psychological: Reports: no symptoms (hx bipolar disorder). Objective Vital Signs and I&Os Vital Signs Date Time Temp Pulse Resp B/P B/P Pulse O2 O2 Flow FiO2 Mean Ox Delivery Rate 02/05 0655 97.8 66 18 100/64 94 Room Air 02/04 2228 98.7 86 19 140/80 98 Room Air 02/04 1526 97.7 78 18 116/70 96 Intake & Output 02/05 1600 02/05 0400 02/04 1600 02/04 0400 02/03 1600 02/03 0400 Intake Total 422 211 5702 1005 1110 600 Output Total 213 060 5960 750 2700 450 Balance -360 255 170 255 -1590 150 Intake, IV 20 375 1480 588 5806 600 Intake, Oral 120 480 870 480 60 Number 0 0 Bowel Movements Output, 50 Emesis Output, Urine 917 648 5215 700 2700 450 Patient 167 lb 165 lb 154 lb Weight Weight Bed scale Bed scale Measurement Method Physical Exam: Well-developed, well-nourished male, in no apparent distress. Sclera anicteric. Conjunctiva pink. Oropharynx clear. No oral thrush. No aphthous ulcers. There is no adenopathy, thyromegaly, or JVD. No peripheral stigmata of inflammatory bowel disease or chronic liver disease on exam. No spiders on the anterior chest wall. No gynecomastia. No CVA tenderness. Mild L-spine tenderness. Lungs: clear to A&P. No wheezing, rales, or rhonchi. Heart exam: regular rate rhythm, S1 and S2, without any murmur. Abdominal exam: normal bowel sounds, soft belly, mild to moderate epigastric tenderness on deep palpation, without guarding or rebound. No mass. No organomegaly. No fluid shift. No pulsatile mass. No epigastric bruit. Digital rectal exam: deferred. Extremities: without C, C, or E. No palpable cords. Mild DJD. No rash. No palmar erythema. No Dupuytren's contractures. Distal pulses 2+ bilaterally. DTRs 2+ bilaterally. Alert and oriented x 3. No tremor. No asterixis. Motor: 5/5 B/L. Brief neurologic exam nonfocal. No signs of cord compression, although digital rectal exam deferred. Current Medications: Current Medications Sig/Chilo Start time Last Medication Dose Route Stop Time Status Admin Acetaminophen 325 MG Q8P PRN 02/01 1745 AC PO Bupropion HCl 300 MG QAM 02/02 0900 AC 02/05 PO 0820 Cholecalciferol 2,000 IU DAILY 02/05 1100 AC PO Dextrose/Lactated 1,000 ML Q13H 02/02 1630 DC 02/04 Ringer's IV 0516 Enoxaparin Sodium 40 MG DAILY 02/03 0900 AC 02/05 SC 0819 Hydromorphone HCl 2 MG Q4P PRN 02/05 0930 AC 02/05 PO 1036 Hydromorphone HCl 1 MG Q6P PRN 02/02 1030 DC 02/05 IV 0819 Lipase/Protease/ 3 CAP WM 02/02 1700 AC 02/05 Amylase PO 0820 Morphine Sulfate 1 MG ONCE ONE 02/04 1900 DC 02/04 IV 02/04 1901 1905 Morphine Sulfate 2 MG ONCE ONE 02/04 1345 DC 02/04 IV 02/04 1346 1348 Omeprazole 40 MG DAILY AC 02/02 0700 AC 02/05 PO 0603 Ondansetron HCl 4 MG TID PRN 02/01 1930 AC 02/04 PO 1306 Patient Medication 1 ED ONE ONE 02/04 1645 DC 02/04 Teaching ED 02/04 1646 1900 Quetiapine Fumarate 300 MG QPM 02/01 2100 AC 02/04 PO 2138 Results Pertinent Lab Results: *As per [employer] computer (*see A&P; none since 02/02/18). Imaging/Other Studies: 02/01/18: EKG- NSR @ 91, nl axis, nl intervals, early transition, LVH, w/o acute ischemic changes. 02/01/18: XRY-CHEST XRAY, TWO VIEWS- 1. Slight anterior wedge compression deformity of 2 adjacent mid thoracic vertebrae. There is no fracture line. These are indeterminate for age. DJD. 2. Old healed fractures of right lateral 7th & 8th ribs, and the left 4th rib. 3. No acute change of chest. 4. Surgical clips in the upper abdomen (post CCKY). 02/01/18: CT ABDOMEN AND PELVIS WITHOUT IV or PO CONTRAST (*limited study w/o IV cont)- New compression fracture to the L1 vertebral body with mild height loss. No evidence for acute abdominal or pelvic inflammatory or infectious processes. No abdominal or pelvic lymphadenopathy. Post cholecystectomy. No dilated ducts. No ascites. 4 mm nonobstructive right renal calculus. Stable left renal cyst.
--- NOTE | 2018-02-05 13:03 | Cons- Pain Management ---
General Information and HPI Consulting Request Date of Consult: 02/05/18 Requested By: Michael FARNSWORTH,Faiza History of Present Illness: I was asked to evaluate this patient who is on the floor for a pain management consult. he is not known to me. I present to his room and patient appears to be sitting up in bed rather comfortably. He is quite hard of hearing in both ears. He states that he ended up in [facility] because he was having increasing adbdominal pain. He states normally he does not have pain buit sometimes he has exacerbations. His GI phsycian is at [facility] and appartently he usually goes to the [facility] ED but he tells me today that he does not like [facility] ED anymore. Allergies/Medications Allergies: Coded Allergies: prochlorperazine (From COMPAZINE) (SHAKING 03/30/17) Home Med List: Bupropion HCl (Bupropion XL) 300 MG TAB.ER.24H 1 TAB PO QAM MENTAL HEALTH ( Reported) Ondansetron (Zofran Odt) 4 MG TAB.RAPDIS 1 TAB SL TID PRN nausea Pantoprazole Sodium 40 MG TABLET.DR 1 TAB PO DAILY ACID REFLUX (Reported) Quetiapine Fumarate 300 MG TABLET 1 TAB PO QPM SLEEP (Reported) Past History Medical History Neurological: NONE EENT: NONE Cardiovascular: NONE Respiratory: NONE Gastrointestinal: pancreatitis Hepatic: NONE Renal: NONE Musculoskeletal: NONE Psychiatric: bipolar disease Endocrine: NONE Blood Disorders: NONE Cancer(s): NONE 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/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: NONE Surgical History Surgical History: cholecystectomy Psychosocial History Smoking Status: Current Everyday Smoker ETOH Use: denies use Illicit Drug Use: denies illicit drug use Exam & Diagnostic Data Last 24 Hrs of Vitals/I&Os: Vital Signs Date Time Temp Pulse Resp B/P B/P Pulse O2 O2 Flow FiO2 Mean Ox Delivery Rate 02/05 0655 97.8 66 18 100/64 94 Room Air 02/04 2228 98.7 86 19 140/80 98 Room Air 02/04 1526 97.7 78 18 116/70 96 Intake & Output 02/05 1600 08 0800 06/08 0000 Intake Total 140 855 Output Total 500 600 Balance -360 255 Intake, IV 20 375 Intake, Oral 120 480 Output, Urine 500 600 Patient 167 lb Weight Weight Bed scale Measurement Method Physical Exam: On exam of his abdomen today, it is soft and NT. There are positive bowel sounds. NO tenderness over [place]ber[place] point. NO rebound tenderness. Assessment/Plan Assessment/Plan: The following are my recommendations for this patient: - Continue dilaudid 2mg PO Q4 hours PRN - Consider PT evaluation in anticpation of discharge home - Consider discharge and follow up with GI from [facility] - If patient is willing, consult at [facility] with Dr. Tinajero would be appropriate for possible Dorsal Root Ganglion(DRG) stimulation trial - I would avoid a LA medication at this point because patient seems to be tolerating SA only and will likely be discharged soon Consult Acknowledgment - Thank you for your consult request.
[2018-02-05 14:42] VITALS: BP 137/78
[2018-02-05 15:11] LABS: ABSOLUTE BASOPHIL COUNT 0 /CUMM (0.0-0.2); ABSOLUTE EOSINOPHIL COUNT 0.5 /CUMM (0.0-0.7); ABSOLUTE GRANULOCYTE CT 2.8 /CUMM (1.4-6.5); ABSOLUTE LYMPH COUNT 1.9 /CUMM (1.2-3.4); ABSOLUTE MONOCYTE COUNT 0.4 /CUMM (0.10-0.60); BASOPHIL % 0.8 % (0.0-2.0); EOSINOPHIL % 9.2 % (0-5); GRANULOCYTE % 49.2 % (42.2-75.2); HEMATOCRIT 31.9 % (42-52); MEAN CORPUSCULAR HGB 30.3 PG (27.0-31.0); MEAN CORPUSCULAR HGB CONC 33.8 G/DL (33.0-37.0); MEAN CORPUSCULAR VOLUME 89.4 FL (80.0-94.0); MEAN PLATELET VOLUME 8.6 FL (7.4-10.4); PLATELET COUNT 324 /CUMM (130-400); RBC DISTRIBUTION WIDTH 16.1 % (11.5-14.5); RED BLOOD CELL CT 3.56 /CUMM (4.70-6.10); WHITE BLOOD CELL COUNT 5.6 /CUMM (4.8-10.8)
[2018-02-05] MEDS ORDERED: VITAMIN D2000 UNI1 PO (16:34)
[2018-02-05 22:01] VITALS: BP 128/79
[2018-02-05 22:03] VITALS: BP 140/86
--- NOTE | 2018-02-06 05:21 | PN- Housestaff ---
Subjective Follow-up For: acute on chronic abdominal pain pancreatitis Subjective: pain is somewhat improved, required one additional dose of dilaudid 2mg po overnight. patient is eating some of his meals on has been tolerating oral analgesics overall improvement in pain control and oral intake, likely discharge this afternoon or tomorrow Review of Systems Constitutional: Reports: see HPI. Objective Last 24 Hrs of Vital Signs/I&O Vital Signs Date Time Temp Pulse Resp B/P B/P Pulse O2 O2 Flow FiO2 Mean Ox Delivery Rate 02/06 0000 Room Air 02/05 2203 98.5 76 18 140/86 97 Room Air / 1442 98.0 79 20 137/78 96 /08 0655 97.8 66 18 100/64 94 Room Air Intake & Output 02/06 0800 02/06 0000 02/05 1600 Intake Total 480 600 Output Total 600 Balance -120 600 Intake, Oral 480 600 Output, Urine 600 Physical Exam General Appearance: Alert, Oriented X3, Cooperative, No Acute Distress Cardiovascular: Regular Rate, Normal S1, Normal S2, No Murmurs Lungs: Clear to Auscultation, Normal Air Movement Abdomen: Normal Bowel Sounds, Soft, No Masses, epigastric area remains tender to palpation Extremities: No Clubbing, No Cyanosis, No Edema, Normal Pulses Current Medications: Current Medications Sig/Chilo Start time Last Medication Dose Route Stop Time Status Admin Acetaminophen 325 MG .STK-MED ONE 02/05 1953 DC PO 02/05 1954 Acetaminophen 325 MG Q8P PRN 02/01 1745 AC 02/05 PO 1955 Bupropion HCl 300 MG QAM 02/02 900 AC 02/05 PO 0820 Cholecalciferol 2,000 IU DAILY 02/05 1100 AC 02/05 PO 1220 Enoxaparin Sodium 40 MG DAILY 02/03 09 02/05 SC 0819 Hydromorphone HCl 2 MG ONCE ONE 02/05 2030 DC 02/05 PO 02/05 203 2031 Hydromorphone HCl 2 MG Q4P PRN 02/05 0930 AC 02/05 PO 1812 Hydromorphone HCl 1 MG Q6P PRN 02/02 1030 DC 02/05 IV 0819 Lipase/Protease/ 3 CAP WM 02/02 1700 AC 02/05 Amylase PO 1704 Omeprazole 40 MG DAILY AC 02/02 0700 AC 06/08 PO 0603 Ondansetron HCl 4 MG TID PRN 02/01 1930 AC 02/04 PO 1306 Quetiapine Fumarate 300 MG QPM 02/01 2100 AC 02/05 PO 2030 Assessment/Plan Assessment: 47 year old male w a PMH of pancreatitis and well controlled bipolar disorder, previous alcohol abuse (quit 20y ago), cholelithiasis s/p cholecystectomy in 2008, and pancreatitis (pancreatic divisum) presented with severe epigastric abdominal pain with associated nausea and aggravated by oral intake, an elevated serum lipase, and unremarkable CT abdomen. Pancreatitis: acute-recurrent Former etoh abuse, current smoker Multiple episodes of pancreatitis in the past, most recently 8 months ago, treated at [facility] Obtained records from outpatient GI, Dr. Guzman from [place] [facility]. Elevated lipase 1095. ALT/AST unremarkable, alkaline phosphatase normal, calcium 8.[address] scan 4 mm nonobstructive calculus in the right kidney, 11 mm low- attenuation lesion on the left upper kidney, L1 new compression fracture. The liver is of normal size and attenuation without focal lesions nor intrahepatic biliary ductal dilation. The patient is status post cholecystectomy. Surgical clips are identified. The spleen, pancreas, adrenal glands are unremarkable. Gastroenterology consultation, appreciate recommendations Discontinued IVFs, encourage PO intake Continue pancreatic enzyme supplementation Zofran for nausea Obtained outpatient associate professor of biology Dr. Guzman H/o pancreatic divisum, sphincterotomy and celiac plexus block Continue low fat diet Continue dilaudid 2mg po q4prn If patient is unable to tolerate diet with oral analgesia may require transfer to [place] for possible repeat celiac plexus nerve block Pain management consultation, recommendations appreciated Bipolar disorder: Continue seroquel and wellbutrin Oupatient psychiatrist- Dr. Sexton Lumbar compression fracture Chest x-ray shows compression deformities of thoracic spine CT shows L1 new compression fracture Low Vitamin D, supplement Orthopedic consultation, awaiting TLSO support brace Outpatient DEXA scan Low fat diet DVT [id number] Full code Plan for weekend discharge after abdominal pain tolerable on oral analgesics and tolerating diet Patient may require short term opioids on discharge, no history found on CTPMP Problem List: 1. Acute pancreatitis 2. Compression fracture of L1 lumbar vertebra 3. Pancreatitis 4. Abdominal pain Pain Ratin Pain Location: epigastric Pain Goal: Pain 4 or less Pain Plan: dilaudid po prn Tomorrow's Labs & Rationales: none
[2018-02-06 06:20] VITALS: BP 114/76
--- NOTE | 2018-02-06 08:33 | Patient Discharge Instructions ---
Discharge Instructions General Discharge Information You were seen/treated for: acute on chronic abdominal pain pancreatitis Special Instructions: Follow up with your primary care physician, pain management, and [place] [facility] doctors. Acute Coronary Syndrome Inclusion Criteria At DC or during hospital stay patient has or had the following: ACS DIAGNOSIS No Discharge Core Measures Meds if any: Prescribed or Continued at Discharge Meds if any: NOT Prescribed or Continued at Discharge Congestive Heart Failure Inclusion Criteria At DC or during hospital stay patient has or had the following: CHF DIAGNOSIS No Discharge Core Measures Meds if any: Prescribed or Continued at Discharge Meds if any: NOT Prescribed or Continued at Discharge Cerebrovascular accident Inclusion Criteria At DC or during hospital stay patient has or had the following: CVA/TIA Diagnosis No Discharge Core Measures Meds if any: Prescribed or Continued at Discharge Meds if any: NOT Prescribed or Continued at Discharge Venous thromboembolism Inclusion Criteria VTE Diagnosis No VTE Type NONE VTE Confirmed by (Test) NONE Discharge Core Measures - Per Current guidelines, there needs to be overlap - treatment for the first 5 days of Warfarin therapy. - If discharged on Warfarin prior to 5 days of - overlap therapy, the patient will need to be - assessed for post discharge needs including - *Post discharge parental anticoagulation - *Warfarin and/or parental anticoagulation education - *Follow up date to check INR post discharge At least 5 days overlap therapy as Inpatient No Meds if any: Prescribed or Continued at Discharge Note: Overlap Therapy is Warfarin and Anticoagulant Meds if any: NOT Prescribed or Continued at Discharge
[2018-02-06] MEDS ORDERED: DILAUDID2 M1 PO (08:34)
--- NOTE | 2018-02-06 09:35 | PN- Att Addend ---
Attending Addendum Attending Brief Note Patient seen and examined. He appears to be lying comfortably in bed and not in acute distress however he reports he continues to have ongoing pain. He states his pain is only mildly improved compared to presentation. He continues to require analgesic therapy. Route was changed to the oral route due to poor IV access. He required an extra dose on top of his baseline oral regimen overnight. He was seen by the pain management service yesterday. Recommendations were to continue oral Dilaudid. Diet has been ordered for him but he reports very small intake. He reports that he is reluctant to eat due to fear of pain. On examination patient appears uncomfortable HEENT: Anicteric, no pallor Heart: S1-S2 Lungs: Clear bilaterally Abdomen: Soft, patient reports tenderness on exam. Normal bowel sounds. Extremities: No pedal edema Skin: Intact without rashes Laboratory Tests 02/05/18 1345: Anion Gap 10, Estimated GFR > 60, BUN/Creatinine Ratio 5.8 L, Calcium 8.4, Phosphorus 3.1, Magnesium 1.8, Total Bilirubin 0.4, Direct Bilirubin 0.2, AST 19 , ALT 12 L, Alkaline Phosphatase 97, C-React Prot High Sens 3.1 H, Total Protein 5.1 L, Albumin 3.1 L, CBC w Diff NO MAN DIFF REQ, RBC 3.56 L, MCV 89.4, MCH 30.3, MCHC 33.8, RDW 16.1 H, MPV 8.6, Gran % 49.2, Lymphocytes % 33.3 , Monocytes % 7.5, Eosinophils % 9.2 H, Basophils % 0.8, Absolute Granulocytes 2.8, Absolute Lymphocytes 1.9, Absolute Monocytes 0.4, Absolute Eosinophils 0.5, Absolute Basophils 0 Problems: 1. Recurrent Pancreatitis 2. Lumbar compression fracture. 3. Bipolar disorder Plan: -Patient continues to report ongoing pain despite analgesic therapy. Reports reluctance to eat meals. According to nursing staff he completes only small portion of his meals. -Patient currently in agreement to be transferred to [facility] to follow-up with his [place] [employer] [place] [employer] there for further evaluation including endoscopic ultrasound and therapeutic interventions -Patient has been accepted for transfer by Dr. Clinton of the [facility] hospitalist service. -Brace ordered by the ortho service for his lumbar fracture.
--- NOTE | 2018-02-06 11:52 | PN- Gastroenterology ---
Assessment/Plan GI Assessment/Recommendations: (*I assumed the inpt GI service from Dr. Camille Joy on 02/03/18. Dr. Camille Joy's inpt GI consult of 02/02/18 was appreciated. His [facility] medical records were reviewed. [facility] records not available at present). 47 y/o male, longtime cigarette smoker, non-EtOH, no street drugs (although previous medical records state that patient has a history of going to various hospitals for "opioid shopping"), past history of pancreatitis, post CCKY, bipolar disorder, remotely seen in inpt GI consultation by Dr. Pearce 12/13/10 for abdominal pain and retroperitoneal mass found on CT. It was uncertain whether this emanated from the pancreas vs. possible lymphoma and/ or retroperitoneal fibrosis. As it abutted the celiac axis, it was felt to be too dangerous to be needled by IR. Plans at that time were for the patient to have outpt EUS with biopsy at [facility]. The patient has since been followed there. His history is complex. Apparently he had a diagnosis of pancreas divisum, pancreatic sphincterotomy, & EUS with celiac nerve block, which he claimed "didn't work". He then apparently switched his GI care from [facility] to Dr. Narayan, at the [facility] in [place]. He claimed he was off narcotics, but on Creon for pancreatic enzyme supplementation. He denied any history of hyperTG. He was admitted to [facility] 02/01/18 (although his records are in [place]), for severe epigastric pain radiating to the back, lipase 1095, TG 106, nl LFTs xc alb 3.2, glob 3.0, WBC 6.2, H/H 11.2/33.4, MCV 88.5, RDW 16.4, PLT 360, nl GFR, glu 100, nl lytes with Ca 8.5, nl lactate, troponin < 0.01, EtOH < 10, nl U/A. There was no evident inflammation on CT, nor any chronic changes (*although limited study, w/o IV cont). He had persistent pain, nausea, and anorexia. A pain management consult was advised. He was also found to have a new L1 compression fracture, which may or may not have been related to his presenting symptoms, and an orthopedic consult was obtained. He claimed he felt a pop in his lower back after moving a 2 weeks [employer], with occasional radiation of pain to the right anterior lateral thigh. He had no urinary or fecal incontinence. Orthopedics advised a TLSO brace. The patient denied any FHx GI Ca, pancreatitis, or inherited liver disease. 02/01/18: EKG- NSR @ 91, nl axis, nl intervals, early transition, LVH, w/o acute ischemic changes. 02/01/18: XRY-CHEST XRAY, TWO VIEWS- 1. Slight anterior wedge compression deformity of 2 adjacent mid thoracic vertebrae. There is no fracture line. These are indeterminate for age. DJD. 2. Old healed fractures of right lateral 7th & 8th ribs, and the left 4th rib. 3. No acute change of chest. 4. Surgical clips in the upper abdomen (post CCKY). 02/01/18: CT ABDOMEN AND PELVIS WITHOUT IV or PO CONTRAST (*limited study w/o IV cont)- New compression fracture to the L1 vertebral body with mild height loss. No evidence for acute abdominal or pelvic inflammatory or infectious processes. No abdominal or pelvic lymphadenopathy. Post cholecystectomy. No dilated ducts. No ascites. 4 mm nonobstructive right renal calculus. Stable left renal cyst. As per my d/w the patient & with Dr. Rodriguez on 02/05/18, the patient reportedly had a normal colonoscopy in [place] approximately 2 years ago (? 2015). He also reportedly had an EGD in [place] in 08/2017, that showed "HP-negative gastritis". Dr. Camille Joy had a advised a low-fat diet with pancreatic supplementation, antiemetics, & PPI, with the caveat that he be transferred to [facility] were all of his GI care has been, for possible repeat EUS etc., if his symptoms persisted. A transfer note had already been dictated on 02/05/18, but as per my discussion with Dr. Rodriguez, he was starting to slowly improve, and the transfer to [place] was put on hold for now. *As of 02/05/18, the patient's IV Morphine & IV Dilaudid was switched to Dilaudid 2 mg po Q4h as needed. *He had just received po Dilaudid < 1 hr prior to my exam. He was receiving Creon-24 (24Ku lipase/tab)-> 3 tabs with each meal. He was on Omeprazole 40 mg daily, Zofran ODT 4 mg TID prn, Wellbutrin, Seroquel , Tylenol prn, & Lovenox for DVT prophylaxis. He ate toast this a.m., followed by epigastric pain and mild nausea, but no vomiting. He claimed his current abdominal pain was "8 out of 10", compared to "10 out of 10", upon admission. He claimed his low back pain was a separate entity. He denied any fevers, chills, jaundice, CP, or SOB. He was hemodynamically stable & afebrile, with O2 sat RA 94%. *Please note, the patient's admission CT was somewhat limited regarding the pancreas, without IV contrast. It is difficult to say whether the patient does indeed have low-grade pancreatitis vs. malingering for opioids. 02/05/18: WBC 5.6, H/H 10.8/31.9, MCV 89.4, RDW 16.1, PLT 324, BUN/Cr 7/1.2, GFR > 60, Na 139, K 3.8, HCO3 27, AG 10, Mg 1.8, Ca 8.4, PO4 3.1, alb 3.1, glob 2.0, TBil 0.4, DBil 0.2, alk phos 97, AST 19, ALT 12 02/05/18: High sens CRP 3.1 (*CRP is more appropriate for prognostic purposes regarding pancreatitis). *As of 02/06/18, the patient remained hemodynamically stable & afebrile, with O2 sat RA 95%. He was ambulating. Although he looked comfortable, he still had subjective abdominal pain and nausea, without any vomiting. His po intake was poor. He tried meat loaf for dinner, f/b recurrent symptoms. He was reluctant to eat, as he feared recurrent pain. He denied any fevers, chills, jaundice, CP, or SOB. Dae had poor IV access & was seen by pain management 02/05/18. They advised continuing Dilaudid 2mg PO Q4 hours PRN & if patient was willing, to have outpt consult at [facility] with Dr. Tinajero for possible Dorsal Root Ganglion(DRG) stimulation trial. They also advised avoiding LA medications, as he seemed to be tolerating only SA medications. In any event, because of the patient's ongoing subjective symptoms, as per my discussion with Dr. Rodriguez, the patient was in agreement to be transferred to [facility], to follow-up with his field support rep there (Dr. aNrayan), for further evaluation, including possible repeat EUS. He was accepted for transfer by Dr. Clinton, of the [facility] hospitalist service. *SUGGEST- Advance low-fat diet as tolerated. Obtain CRP (not high sensitivity CRP) for prognostic purposes. Watch for hemoconcentration (i.e.- rising HCT/BUN), which would necessitate resumption of IV fluids, if access available. Oral SA narcotic analgesics as needed (currently on Dilaudid 2 mg po Q4h prn), per pain management, & defer LA narcotic analgesics. If patient was willing, to have outpt consult at [facility] with Dr. Tinajero for possible Dorsal Root Ganglion(DRG) stimulation trial. Continue Creon-24 (24Ku lipase/tab)-> 3 tabs with each meal & 1 tab with snacks. Continue Omeprazole 40 mg daily, Zofran ODT 4 mg TID prn, Wellbutrin, Seroquel, Tylenol prn, & Lovenox for DVT prophylaxis. Continue to mobilize patient as tolerated. TLSO back brace regarding L1 compression fx, per ortho. *As per my discussion with Dr. Rodriguez on 02/06/18, the patient will be transferred to [facility] where his old records are (currently followed for GI in [place] by Dr. Narayan), for *consideration of repeat EUS, if subjective symptoms persist. He was accepted by Dr. Clinton, of the [facility] hospitalist service. He should ultimately be followed by his GI M.D. in [place], after his [facility] discharge. Problem List: 1. Pancreatitis 2. Abdominal pain 3. Nausea & vomiting 4. Compression fracture of L1 lumbar vertebra 5. Bipolar disorder Subjective Subjective: 02/05/18: WBC 5.6, H/H 10.8/31.9, MCV 89.4, RDW 16.1, PLT 324, BUN/Cr 7/1.2, GFR > 60, Na 139, K 3.8, HCO3 27, AG 10, Mg 1.8, Ca 8.4, PO4 3.1, alb 3.1, glob 2.0, TBil 0.4, DBil 0.2, alk phos 97, AST 19, ALT 12 02/05/18: High sens CRP 3.1 (*CRP is more appropriate for prognostic purposes regarding pancreatitis). *As of 02/06/18, the patient remained hemodynamically stable & afebrile, with O2 sat RA 95%. He was ambulating. Although he looked comfortable, he still had subjective abdominal pain and nausea, without any vomiting. His po intake was poor. He tried meat loaf for dinner, f/b recurrent symptoms. He was reluctant to eat, as he feared recurrent pain. He denied any fevers, chills, jaundice, CP, or SOB. H had poor IV access & was seen by pain management 02/05/18. They advised continuing Dilaudid 2mg PO Q4 hours PRN & if patient was willing, to have outpt consult at [facility] with Dr. Tinajero for possible Dorsal Root Ganglion(DRG) stimulation trial. They also advised avoiding LA medications, as he seemed to be tolerating only SA medications. In any event, because of the patient's ongoing subjective symptoms, as per my discussion with Dr. Rodriguez, the patient was in agreement to be transferred to [facility], to follow-up with his field support rep there (Dr. Narayan), for further evaluation, including possible repeat EUS. He was accepted for transfer by Dr. Clinton, of the [facility] hospitalist service. Review of Systems: Full 14 point ROS otherwise noncontributory, and as above. Constitutional: Reports: no symptoms. EENTM: Reports: no symptoms. Cardiovascular: Reports: no symptoms. Respiratory: Reports: no symptoms. GI: Reports: abdominal pain & nausea (vomiting resolved). Musculoskeletal: Reports: no symptoms. Skin: Reports: no symptoms. Neurological/Psychological: Reports: no symptoms (hx bipolar disorder). Objective Vital Signs and I&Os Vital Signs Date Time Temp Pulse Resp B/P B/P Pulse O2 O2 Flow FiO2 Mean Ox Delivery Rate 02/06 0620 98.4 65 18 114/76 95 Room Air 02/06 0000 Room Air 02/05 2203 98.5 76 18 140/86 97 Room Air 02/05 1442 98.0 79 20 137/78 96 Intake & Output 02/06 1600 02/06 0400 02/05 040 Intake Total 50 480 890 609 3151 1005 Output Total 300 600 241 638 3407 750 Balance -250 -120 240 255 170 255 Intake, IV 20 375 1125 525 Intake, Oral 50 480 720 480 870 480 Output, 50 Emesis Output, Urine 300 600 218 790 4191 700 Patient 167 lb 165 lb Weight Weight Bed scale Bed scale Measurement Method Physical Exam: Well-developed, well-nourished male, in no apparent distress. Nontoxic appearing. Sclera anicteric. Conjunctiva pink. Oropharynx clear. No oral thrush. No aphthous ulcers. There is no adenopathy, thyromegaly, or JVD. No peripheral stigmata of inflammatory bowel disease or chronic liver disease on exam. No spiders on the anterior chest wall. No gynecomastia. No CVA tenderness. Mild L-spine tenderness. Lungs: clear to A&P. No wheezing, rales, or rhonchi. Heart exam: regular rate rhythm, S1 and S2, without any murmur. Abdominal exam: normal bowel sounds, soft belly, mild epigastric tenderness on deep palpation, without guarding or rebound. No mass. No organomegaly. No fluid shift. No pulsatile mass. No epigastric bruit. Digital rectal exam: deferred. Extremities: without C, C, or E. No palpable cords. Mild DJD. No rash. No palmar erythema. No Dupuytren's contractures. Distal pulses 2+ bilaterally. DTRs 2+ bilaterally. Alert and oriented x 3. No tremor. No asterixis. Motor: 5/5 B/L. Brief neurologic exam nonfocal. No signs of cord compression, although digital rectal exam deferred. Current Medications: Current Medications Sig/Chilo Start time Last Medication Dose Route Stop Time Status Admin Acetaminophen 325 MG .STK-MED ONE 02/05 1953 DC PO 02/05 1954 Acetaminophen 325 MG Q8P PRN 02/01 1745 AC 02/05 PO 1954 Bupropion HCl 300 MG QAM 02/02 0900 AC 02/06 PO 822 Cholecalciferol 2,000 IU DAILY 02/05 1100 AC 02/06 PO 0823 Enoxaparin Sodium 40 MG DAILY 02/03 0900 AC 02/06 SC 0823 Hydromorphone HCl 2 MG ONCE ONE 02/05 2030 DC 02/05 PO 02/05 Hydromorphone HCl 2 MG Q4P PRN 02/05 0930 AC 02/06 PO 1029 Lipase/Protease/ 3 CAP WM 02/02 1700 AC 02/06 Amylase PO 08 Omeprazole 40 MG DAILY AC 02/02 07 AC 02/06 PO 0619 Ondansetron HCl 4 MG TID PRN 02/01 1930 AC 02/04 PO 1306 Quetiapine Fumarate 300 MG QPM 02/01 2100 AC 02/05 PO 2030 Results Pertinent Lab Results: Laboratory Tests 02/05 02/05 1345 0600 Chemistry Sodium (137 - 145 mmol/L) 139 Cancelled Potassium (3.5 - 5.1 mmol/L) 3.8 Cancelled Chloride (98 - 107 mmol/L) 102 Cancelled Carbon Dioxide (22 - 30 mmol/L) 27 Cancelled Anion Gap (5 - 16) 10 Cancelled BUN (9 - 20 mg/dL) 7 L Cancelled Creatinine (0.7 - 1.2 mg/dL) 1.2 Cancelled Estimated GFR (>60 ml/min) > 60 BUN/Creatinine Ratio (7 - 25 %) 5.8 L Cancelled Calcium (8.4 - 10.2 mg/dL) 8.4 Phosphorus (2.5 - 4.5 mg/dL) 3.1 Magnesium (1.6 - 2.3 mg/dL) 1.8 Total Bilirubin (0.2 - 1.3 mg/dL) 0.4 Direct Bilirubin (< 0.4 mg/dL) 0.2 AST (17 - 59 U/L) 19 ALT (21 - 72 U/L) 12 L Alkaline Phosphatase (< 127 U/L) 97 C-React Prot High Sens (1.0 - 3.0 mg/L) 3.1 H Total Protein (6.3 - 8.2 g/dL) 5.1 L Albumin (3.5 - 5.0 g/dL) 3.1 L Hematology CBC w Diff NO MAN DIFF REQ Cancelled WBC (4.8 - 10.8 /CUMM) 5.6 Cancelled RBC (4.70 - 6.10 /CUMM) 3.56 L Cancelled Hgb (14.0 - 18.0 G/DL) 10.8 L Cancelled Hct (42 - 52 %) 31.9 L Cancelled MCV (80.0 - 94.0 FL) 89.4 Cancelled MCH (27.0 - 31.0 PG) 30.3 Cancelled MCHC (33.0 - 37.0 G/DL) 33.8 Cancelled RDW (11.5 - 14.5 %) 16.1 H Cancelled Plt Count (130 - 400 /CUMM) 324 Cancelled MPV (7.4 - 10.4 FL) 8.6 Cancelled Gran % (42.2 - 75.2 %) 49.2 Lymphocytes % (20.5 - 51.1 %) 33.3 Monocytes % (1.7 - 9.3 %) 7.5 Eosinophils % (0 - 5 %) 9.2 H Basophils % (0.0 - 2.0 %) 0.8 Absolute Granulocytes (1.4 - 6.5 /CUMM) 2.8 Absolute Lymphocytes (1.2 - 3.4 /CUMM) 1.9 Absolute Monocytes (0.10 - 0.60 /CUMM) 0.4 Absolute Eosinophils (0.0 - 0.7 /CUMM) 0.5 Absolute Basophils (0.0 - 0.2 /CUMM) 0 Imaging/Other Studies: 02/01/18: EKG- NSR @ 91, nl axis, nl intervals, early transition, LVH, w/o acute ischemic changes. 02/01/18: XRY-CHEST XRAY, TWO VIEWS- 1. Slight anterior wedge compression deformity of 2 adjacent mid thoracic vertebrae. There is no fracture line. These are indeterminate for age. DJD. 2. Old healed fractures of right lateral 7th & 8th ribs, and the left 4th rib. 3. No acute change of chest. 4. Surgical clips in the upper abdomen (post CCKY). 02/01/18: CT ABDOMEN AND PELVIS WITHOUT IV or PO CONTRAST (*limited study w/o IV cont)- New compression fracture to the L1 vertebral body with mild height loss. No evidence for acute abdominal or pelvic inflammatory or infectious processes. No abdominal or pelvic lymphadenopathy. Post cholecystectomy. No dilated ducts. No ascites. 4 mm nonobstructive right renal calculus. Stable left renal cyst.
== END 2018-02-06 12:42 | disposition short-term general hospital (02) | DRG 439 ==
LOC: ERH 10:02 → ERHI 15:42 → 2NA 15:42 → ENTRNSPT 17:38 → EDTRNSPT 17:43 → EDTRNSPTSTS 17:43 → 2NA 17:54 → ENRESERV 17:54 → CMPTRNSPT 17:57 → 2NA 02-02 15:03 → ENPENDDIS 02-06 09:54 → 2NA 02-06 12:42
PROVIDERS: Internal Medicine Cardiovascular Disease; Physician Assistant Medical; Preventive Medicine Public Health & General Preventive Medicine
DX: K85.90 Acute pancreatitis without necrosis or infection, unspecified (principal); S32.019A Unspecified fracture of first lumbar vertebra, initial encounter for closed fracture; F31.9 Bipolar disorder, unspecified; Z90.49 Acquired absence of other specified parts of digestive tract; R00.0 Tachycardia, unspecified; X58.XXXA Exposure to other specified factors, initial encounter; G89.4 Chronic pain syndrome; M54.5 Low back pain; F17.210 Nicotine dependence, cigarettes, uncomplicated; Z88.8 Allergy status to other drugs, medicaments and biological substances; Z88.5 Allergy status to narcotic agent
CPT/HCPCS: 2NASP; 87070; 87075; 36415; 71046; 74176; 81003; 82436; 93005; 93010; 96374; 96375; 96376; G0480; J0131; J1650; J2270; J2405; J3101; J3250; J7120